=== PATIENT | male | born 1955 | race African-American/Black ===

== ENCOUNTER 2018-01-07 17:43 | Emergency (ER) | payer SELFPAY ==
[~2018-01-07] VITALS: Ht 188 cm; Wt 72.7 kg
[~2018-01-07 17:43] MED LIST: ATIVAN1 MG PO; CYCLOBENZAPRINE10 MG PO; GEODON20 MG PO; LIBRIUM25 MG PO
[2018-01-07 17:56] VITALS: Ht 188 cm; Wt 72.7 kg
[2018-01-07] MEDS ORDERED: BP MEDS (18:12)
[2018-01-07] MEDS ORDERED: SEIZURE MEDICATION (18:13)
[2018-01-07] MEDS ORDERED: CHOLESTEROL MEDS (18:13)
[2018-01-07] MEDS ORDERED: SEASONAL ALLERGY MED (18:13)
[2018-01-07] MEDS ORDERED: VIBRAMYCIN 100100 MG PO (22:37)
[2018-01-07] MEDS ORDERED: TORADOL10 MG PO (22:37)
[2018-01-07 22:50] VITALS: BP 106/72
== END 2018-01-07 22:51 | disposition home or self-care (01) ==
LOC: D.ER 17:43
DX: S01.511A Laceration without foreign body of lip, initial encounter (principal); W18.30XA Fall on same level, unspecified, initial encounter; Y93.89 Activity, other specified; Y92.89 Other specified places as the place of occurrence of the external cause; S70.01XA Contusion of right hip, initial encounter; G40.909 Epilepsy, unspecified, not intractable, without status epilepticus; I10 Essential (primary) hypertension; F17.200 Nicotine dependence, unspecified, uncomplicated

== ENCOUNTER 2018-01-14 08:23 | Emergency (ER) | payer SELFPAY ==
[~2018-01-14] VITALS: Ht 188 cm; Wt 71.8 kg
[~2018-01-14 08:23] MED LIST changes: +BP MEDS; +CHOLESTEROL MEDS; +SEASONAL ALLERGY MED; +SEIZURE MEDICATION; +TORADOL10 MG PO; +VIBRAMYCIN 100100 MG PO
[2018-01-14 08:36] VITALS: BP 103/63; Ht 188 cm; Wt 71.8 kg
== END 2018-01-14 09:31 | disposition home or self-care (01) ==
LOC: D.ER 08:23
DX: S01.511D Laceration without foreign body of lip, subsequent encounter (principal); X58.XXXD Exposure to other specified factors, subsequent encounter; Z48.02 Encounter for removal of sutures; F17.200 Nicotine dependence, unspecified, uncomplicated

== ENCOUNTER 2018-12-31 07:12 | Inpatient (IN) | payer SELFPAY ==
[~2018-12-31] VITALS: Ht 188 cm; Wt 60.9 kg
[2018-12-31 07:57] LABS: BASOPHILS 0.5 % (0-2); EOSINOPHILS 1.1 % (0-7); HEMATOCRIT 35.4 % (42.0-54.0); HEMOGLOBIN 11.9 g/dL (13.5-17.5); IMMATURE GRANULOCYTES 0.4 % (0-5); LYMPHOCYTES 11.7 % (15-50); MCH 27.2 pg (26.0-34.0); MCHC 33.6 g/dL (31.0-37.0); MEAN PLATELET VOLUME 9.3 fL (7.4-10.4); MONOCYTES 9.9 % (2-11); NEUTROPHILS 76.4 % (40-80); RBC 4.37 10x6/uL (4.20-6.10); RDW 15.9 % (11.5-14.5); WBC 13.9 10x3/uL (4.8-10.8)
[2018-12-31 07:59] LABS: PLATELET COUNT 432 10x3/uL (130-400)
[2018-12-31 08:06] LABS: INR 1.49 (0.85-1.17); PROTIME 17.5 SECONDS (11.6-15.0)
[2018-12-31 08:07] LABS: APTT 39.9 SECONDS (22.8-39.4)
[2018-12-31 08:15] VITALS: BP 110/59
[2018-12-31 08:26] LABS: ALBUMIN 2.3 g/dL (3.4-5.0); ALKALINE PHOSPHATASE 183 U/L (46-116); ALT (SGPT) 23 U/L (10-68); BILIRUBIN - TOTAL 0.57 mg/dL (0.2-1.3); CALC OSMOLALITY 259 mosm/kg (275-300); CALCIUM 8.8 mg/dL (8.5-10.1); CARBON DIOXIDE 23.6 mmol/L (21.0-32.0); CKMB 0.3 U/L (0.0-3.6); CREATINE KINASE 96 UL (21-232); CREATININE - SERUM 0.8 mg/dL (0.6-1.3); PRO BNP 629 pg/mL (0-125); PROTEIN - SERUM 8.9 g/dL (6.4-8.2); SODIUM 130 mmol/L (136-145); TROPONIN-I < 0.017 ng/mL (0.000-0.060); UREA NITROGEN 5 mg/dL (7-18); eGFR NON AFRICAN AMERICAN > 90 mL/min (90-120)
[2018-12-31 08:27] LABS: CHLORIDE - SERUM 94 mmol/L (98-107); GLUCOSE 135 mg/dL (74-106)
[2018-12-31 11:16] LABS: THYROID STIMULATING HORMONE 5.46 uIU/mL (0.36-3.74)
--- NOTE | 2018-12-31 11:30 | NUR ---
NEW PATIENT ADMIT FROM ER WITH PNUEMONIA. PATIENT HAS MASK ON AND STATES THAT HE WAS INSTRUCTED TO KEEP ON UNTIL HE WAS TOLD OTHERWISE. PATIENT HAS 22 G TO RAC SL. ROOM AIR. PATIENT IS ALERT ORIENTED X 4. VSS. ;PATIENT DENIES ANY NEEDS OR PAIN. WILL CONTINUE WITH PLAN OF CARE. SR UP X 2 BED IN LOW POSITION AND CALL LIGHT IN REACH. ORIENTED PATIENT TO ROOM, BATHROOM AND CALL LIGHT .
--- NOTE | 2018-12-31 11:33 | MORECARE ---
CASE MANAGEMENT DISCHARGE SUMMARY PATIENT: QUE RUDD UNIT: [id number] ADM DATE: 12/31/18 AGE: 63 : 57 SEX: M ROOM/BED: D.1208 AUTHOR: DAVID ROCHA PHYSICIAN: REFERRING PHYSICIAN: FREDDIE DOWNS MD DATE OF SERVICE: 12/31/18 Discharge Plan Patient Name: QUE RUDD [facility] [facility] 1955 Planned Disposition: Home Anticipated Discharge Date: 01/04/19 Discharge Date: Expected LOS: 4 Initial Reviewer: [email or web address] Initial Review Date: 12/31/2018 Generated: 12/31/18 12:33 pm DCPIA - Discharge Planning Initial Assessment Updated by [email or web address]: Arcelia Monroe on 12/31/18 11:30 am * Is the patient Alert and Oriented? Yes * How many steps to enter\exit or inside your home? None * PCP Dr. Molina in [place] * Pharmacy [facility] in [place] * Preadmission Environment Home Alone * ADLs Independent * Equipment Cane * List name and contact numbers for known caregivers / representatives who currently or will assist patient after discharge: Jesús Rudd - brother - [phone] * Verbal permission to speak to the caregivers and representatives has been obtained from the patient. Yes * Community resources currently utilized None * Additional services required to return to the preadmission environment? No * Can the patient safely return to the preadmission environment? Yes * Has this patient been hospitalized within the prior 30 days at any hospital? No Patient Name: QUE RUDD Page 45466 at 1133 All edits/amendments must be made on the electronic document DICTATION DATE: 12/31/18 1133 DIRECTOR PRODUCT DEVELOPMENT: PHU 12/31/18 1133 RPT#: [id number] DC DATE: STATUS: ADM IN [facility] [address] [place] [address] END OF REPORT
[2018-12-31 11:42] VITALS: BP 88/55; BMI 17.1
--- NOTE | 2018-12-31 11:43 | MORECARE ---
CASE MANAGEMENT DISCHARGE SUMMARY PATIENT: QUE RUDD UNIT: [id number] ADM DATE: 12/31/18 AGE: 63 : 57 SEX: M ROOM/BED: D.1208 AUTHOR: JOSEFINA,DOC PHYSICIAN: REFERRING PHYSICIAN: FREDDIE DOWNS MD DATE OF SERVICE: 12/31/18 Discharge Plan Patient Name: QUE RUDD Facility: [facility]:[place] : 1955 Planned Disposition: Home Anticipated Discharge Date: 01/04/19 Discharge Date: Expected LOS: 4 Initial Reviewer: [email or web address] Initial Review Date: 12/31/2018 Generated: 12/31/18 12:43 pm DCP- Discharge Planning Updated by [email or web address]: Arcelia Monroe on 12/31/18 10:[address] DC PLAN: Return home independently. ANTICIPATED DC NEEDS: Needs a local pharmacy for dc meds. CM met with patient to complete initial dc planning assessment. CM educated patient on the CM role and verbal consent given by patient to complete assessment. CM verified patient's address, phone number, and emergency contact phone numbers. Patient lives at home alone and reports he is independent in his care at home. Patient has [place] Medicaid and his pharmacy is in [place]. He stated his medicaid will not cover medications at dc if he gets them here. He denied returning to [place] for several more weeks. CM explained that he needed to select a local pharmacy to get his dc meds from. If possible will need dc meds off the $4 drug list. At discharge patient plans to return home alone and feels this is a safe discharge. CM discussed availability of home health, rehab services, and medical equipment. Patient denied known discharge needs at this time. Patient reports his brother will transport him home at time of discharge. CM will continue to follow and will assist as needed with dc plans/needs. Arcelia Monroe RN, [facility] DCPIA - Discharge Planning Initial Assessment Updated by [email or web address]: Arcelia Monroe on 12/31/18 11:30 am * Is the patient Alert and Oriented? Yes * How many steps to enter\exit or inside your home? None * PCP Dr. Molina in [place] * Pharmacy [facility] in [place] * Preadmission Environment Home Alone * ADLs Independent * Equipment Cane * List name and contact numbers for known caregivers / representatives who currently or will assist patient after discharge: Jesús Rudd - brother - [phone] * Verbal permission to speak to the caregivers and representatives has been obtained from the patient. Yes * Community resources currently utilized None * Additional services required to return to the preadmission environment? No * Can the patient safely return to the preadmission environment? Yes * Has this patient been hospitalized within the prior 30 days at any hospital? No Last DP export: 12/31/18 10:33 a Patient Name: QUE RUDD Page 85184 at 1143 All edits/amendments must be made on the electronic document DICTATION DATE: 12/31/18 1143 MOVIE CRITIC: PHU 12/31/18 1143 RPT#: [id number] DC DATE: STATUS: ADM IN [facility] [address] [place] [address] END OF REPORT
--- NOTE | 2018-12-31 12:00 | NUR ---
DR CAROLINA IN ROOM. NEW ORDERS RECEIVED. PATIENT TO BE PLACED ON REVERSE ISOLATION FOR POSSIBLE TB. CALL DEAN FOR ROOM. WILL GET BACK TO ME.
--- NOTE | 2018-12-31 12:20 | NUR ---
RECEVIED PHONE CALL FROM DR CAROLINA. PATIENT TO REMAIN NPO AND BE PREPARED FOR BRONCHOSCOPY.
[2018-12-31 12:29] VITALS: BP 92/62
[2018-12-31] MEDS ORDERED: NORVASC10 MG PO (13:59)
[2018-12-31] MEDS ORDERED: FLUTICASONE PRO16 GM NASAL (13:59)
[2018-12-31] MEDS ORDERED: SINGULAIR10 MG PO (14:00)
--- NOTE | 2018-12-31 14:00 | NUR ---
RECIEVED CALL FROM DEAN MARSHALL SUP. NEW ROOM NUMBER WILL BE [id number].
[2018-12-31] MEDS ORDERED: LIPITOR40 MG PO (14:01)
[2018-12-31] MEDS ORDERED: PEPCID40 MG PO (14:01)
[2018-12-31] MEDS ORDERED: SPIRIVA RESPIMAT4 G1 INH (14:02)
[2018-12-31 14:23] LABS: CKMB 0.2 U/L (0.0-3.6); CREATINE KINASE 72 UL (21-232); TROPONIN-I < 0.017 ng/mL (0.000-0.060)
--- NOTE | 2018-12-31 14:26 | NUR ---
PATIENT RESTING QUIETLY WITH EYES CLOSED AND BREATHING EVENLY. PATIENT IS BEING TRANSFERED TO ROOM 2101. ATTEMPTED TO CALL REPORT AND TRANSFER. NURSE TO CALL ME BACK.
[2018-12-31 14:33] LABS: UDS - AMPHET NEGATIVE QUAL (NEGATIVE); UDS - BARB NEGATIVE QUAL (NEGATIVE); UDS - BENZO NEGATIVE QUAL (NEGATIVE); UDS - COCAINE NEGATIVE QUAL (NEGATIVE); UDS - OPIATE NEGATIVE QUAL (NEGATIVE); UDS - PCP NEGATIVE QUAL (NEGATIVE); UDS - THC NEGATIVE QUAL (NEGATIVE)
--- NOTE | 2018-12-31 14:49 | NUR ---
CALLED REPORT TO ZAKI ROCHA. PATIENT IS STABLE AND VSS. PATIENT TRANSFERRED VA AND HOSPTIAL STAFF TO ROOM 2101.
--- NOTE | 2018-12-31 14:50 | NUR ---
SENT MEDICAL RECORD REQUEST TO [facility]. RECORDS TO BE FAXED TO [facility].
--- NOTE | 2018-12-31 15:37 | NUR ---
PATIENT HAS BEEN TRANSFERED FROM [facility]. CALLED AND GOT REPORT FROM NURSE LUKE. PATIENT IS IN NEGATIVE PRESSURE ROOM WITH PNEUMONIA AND POSSIBLE TB. HE IS ABOUT TO GET A BRONCOSCOPY. HE HAS HAD A TB SPOT DONE AND OTHER TESTS. HE WILL GET THE SPUTUM CULTURE NOW DURING THE BRONCH. WILL CONTINUE TO MONITOR THE PATIENT CAREFULLY. HE HAD LOW BLOOD PRESSURE BEFORE TRANSFER.
--- NOTE | 2018-12-31 19:20 | NUR ---
EVENING ROUNDS COMPLETE, PT LAYING IN BED. NO SIGNS OF DISTRESS. AAOX4. CL IN REACH, BED IN LOWEST POSTION.
[2018-12-31 20:00] VITALS: BP 100/57
[2018-12-31 21:10] LABS: CKMB 0.1 U/L (0.0-3.6); CREATINE KINASE 57 UL (21-232); TROPONIN-I < 0.017 ng/mL (0.000-0.060)
[2019-01-01] VITALS: BP 112/63
[2019-01-01 02:35] LABS: BASOPHILS 0.3 % (0-2); EOSINOPHILS 0.1 % (0-7); HEMATOCRIT 29.6 % (42.0-54.0); HEMOGLOBIN 10.1 g/dL (13.5-17.5); IMMATURE GRANULOCYTES 0.7 % (0-5); LYMPHOCYTES 12.3 % (15-50); MCH 27.6 pg (26.0-34.0); MCHC 34.1 g/dL (31.0-37.0); MCV 80.9 fL (80.0-100.0); MEAN PLATELET VOLUME 9.3 fL (7.4-10.4); MONOCYTES 15.9 % (2-11); NEUTROPHILS 70.7 % (40-80); PLATELET COUNT 366 10x3/uL (130-400); RBC 3.66 10x6/uL (4.20-6.10); RDW 16.1 % (11.5-14.5); WBC 16.5 10x3/uL (4.8-10.8)
[2019-01-01 03:14] LABS: ALBUMIN 1.9 g/dL (3.4-5.0); ALKALINE PHOSPHATASE 152 U/L (46-116); BILIRUBIN - TOTAL 0.58 mg/dL (0.2-1.3); CALC OSMOLALITY 259 mosm/kg (275-300); CALCIUM 7.6 mg/dL (8.5-10.1); CARBON DIOXIDE 22.9 mmol/L (21.0-32.0); CHLORIDE - SERUM 97 mmol/L (98-107); CKMB 0.2 U/L (0.0-3.6); CREATINE KINASE 49 UL (21-232); CREATININE - SERUM 0.7 mg/dL (0.6-1.3); GLUCOSE 107 mg/dL (74-106); MAGNESIUM - SERUM 1.4 mg/dL (1.8-2.4); PROTEIN - SERUM 7.3 g/dL (6.4-8.2); SODIUM 131 mmol/L (136-145); UREA NITROGEN 5 mg/dL (7-18); eGFR NON AFRICAN AMERICAN > 90 mL/min (90-120)
[2019-01-01 03:15] LABS: ALT (SGPT) 17 U/L (10-68); POTASSIUM - SERUM 2.9 mmol/L (3.5-5.1); TROPONIN-I < 0.017 ng/mL (0.000-0.060)
[2019-01-01 04:00] VITALS: BP 101/65
[2019-01-01 08:32] VITALS: BP 115/79
--- NOTE | 2019-01-01 09:39 | NUR ---
PATIENT IS ALERT AND ORIENTED. HE REPORTED NAUSEA AND TREATED WITH MEDICINE ORDERED.
[2019-01-01] MEDS ORDERED: SINGULAIR10 MG PO (11:20)
[2019-01-01] MEDS ORDERED: NORVASC10 MG PO (11:21)
[2019-01-01] MEDS ORDERED: ADVIL100 M1 PO (11:23)
[2019-01-01] MEDS ORDERED: MULTI-DAY VITAM1 TAB PO (11:24)
[2019-01-01 13:16] VITALS: Ht 188 cm; Wt 60.9 kg
[2019-01-01 14:09] LABS: FUNGUS STAIN Final report (())
[2019-01-01 14:52] VITALS: BP 121/79
[2019-01-01 17:08] LABS: AFB SPECIMEN PROCESSING Concentration (())
--- NOTE | 2019-01-01 17:12 | NUR ---
PATIENT IS RESTING AT THIS TIME. DR CARLOINA IS AT BEDSIDE. PATIENT HAS NOT COMPLAINED OF PAIN.
--- NOTE | 2019-01-01 19:04 | NUR ---
PATIENT BROTHER BROUGHT HIS MEDICATIONS FROM HOME, AND THEY HAVE BEEN BROUGHT TO PHARMACY AND LOCKED UP THERE. THE PAPERS ARE IN HIS CHART.
--- NOTE | 2019-01-01 19:30 | NUR ---
PT CARE ASSUMED. BEDSIDE SHIFT REPORT COMPLETE. PT CONTINUES ON AIRBORNE PRECAUTIONS. RR EVEN AND UNLABORED ON RA. NO S/S OF DISTRESS NOTED AT THIS TIME. NO VOICED C/O OR CONCERNS AT THIS TIME. CALL LIGHT IN REACH. WILL CTM.
[2019-01-01 20:00] VITALS: BP 85/50
[2019-01-02] VITALS: BP 105/68
[2019-01-02 04:00] VITALS: BP 100/65
[2019-01-02 05:07] LABS: BASOPHILS 0.6 % (0-2); EOSINOPHILS 0.6 % (0-7); HEMATOCRIT 30.6 % (42.0-54.0); HEMOGLOBIN 10.2 g/dL (13.5-17.5); IMMATURE GRANULOCYTES 0.3 % (0-5); MCH 27.3 pg (26.0-34.0); MCHC 33.3 g/dL (31.0-37.0); MEAN PLATELET VOLUME 9.7 fL (7.4-10.4); MONOCYTES 16.2 % (2-11); NEUTROPHILS 71.3 % (40-80); PLATELET COUNT 362 10x3/uL (130-400); RBC 3.73 10x6/uL (4.20-6.10); RDW 16.6 % (11.5-14.5); WBC 13.1 10x3/uL (4.8-10.8)
[2019-01-02 05:27] LABS: ALBUMIN 1.7 g/dL (3.4-5.0); ALKALINE PHOSPHATASE 130 U/L (46-116); ALT (SGPT) 13 U/L (10-68); CALC OSMOLALITY 258 mosm/kg (275-300); CALCIUM 8.1 mg/dL (8.5-10.1); CHLORIDE - SERUM 97 mmol/L (98-107); CREATININE - SERUM 0.7 mg/dL (0.6-1.3); GLUCOSE 119 mg/dL (74-106); MAGNESIUM - SERUM 1.5 mg/dL (1.8-2.4); POTASSIUM - SERUM 3.7 mmol/L (3.5-5.1); PROTEIN - SERUM 6.9 g/dL (6.4-8.2); SODIUM 130 mmol/L (136-145); UREA NITROGEN 5 mg/dL (7-18); eGFR NON AFRICAN AMERICAN > 90 mL/min (90-120)
[2019-01-02 10:35] VITALS: BP 84/59
--- NOTE | 2019-01-02 10:43 | NUR ---
I have reviewed this patient and I concur with the Shift Assessment completed by the Licensed Practical Nurse today this shift.
[2019-01-02 12:50] VITALS: BP 141/78
--- NOTE | 2019-01-02 19:42 | NUR ---
PT CARE ASSUMED. BEDSIDE SHIFT REPORT COMPLETE. PT A&O, RR EVEN AND UNLABORED ON RA. NO S/S OF DISTRESS NOTED. LINEN CHANGE PROVIDED. NO VOICED C/O OR CONCERNS AT THIS TIME. CALL LIGHT IN REACH. WILL CTM.
[2019-01-02 20:00] VITALS: BP 99/68
[2019-01-03 00:30] VITALS: BP 102/66
[2019-01-03 04:00] VITALS: BP 92/57
[2019-01-03 05:50] LABS: BASOPHILS 0.7 % (0-2); EOSINOPHILS 0.8 % (0-7); HEMATOCRIT 31.2 % (42.0-54.0); HEMOGLOBIN 10.5 g/dL (13.5-17.5); IMMATURE GRANULOCYTES 0.3 % (0-5); LYMPHOCYTES 15.2 % (15-50); MCH 27.3 pg (26.0-34.0); MCHC 33.7 g/dL (31.0-37.0); MCV 81.3 fL (80.0-100.0); MEAN PLATELET VOLUME 9.3 fL (7.4-10.4); MONOCYTES 18.8 % (2-11); NEUTROPHILS 64.2 % (40-80); PLATELET COUNT 323 10x3/uL (130-400); RBC 3.84 10x6/uL (4.20-6.10); RDW 16.3 % (11.5-14.5)
[2019-01-03 06:12] LABS: ALBUMIN 1.7 g/dL (3.4-5.0); ALKALINE PHOSPHATASE 131 U/L (46-116); ALT (SGPT) 19 U/L (10-68); CALC OSMOLALITY 256 mosm/kg (275-300); CALCIUM 7.7 mg/dL (8.5-10.1); CARBON DIOXIDE 22.3 mmol/L (21.0-32.0); CHLORIDE - SERUM 99 mmol/L (98-107); CREATININE - SERUM 0.8 mg/dL (0.6-1.3); GLUCOSE 103 mg/dL (74-106); MAGNESIUM - SERUM 1.6 mg/dL (1.8-2.4); POTASSIUM - SERUM 3.9 mmol/L (3.5-5.1); PROTEIN - SERUM 6.9 g/dL (6.4-8.2); SODIUM 129 mmol/L (136-145); UREA NITROGEN 6 mg/dL (7-18); eGFR NON AFRICAN AMERICAN > 90 mL/min (90-120)
--- NOTE | 2019-01-03 07:30 | NUR ---
A/A/OX4. RESTING QUIETLY IN BED WATCHING TV. DENIES ANY PAIN AT PRESENT TIME AND NO REQUESTS VOICED. SL PATENT TO RIGHT AC WITHOUT REDNESS OR EDEMA. ASSESSMENT COMPLETED AND WILL CONTINUE POC.
[2019-01-03 07:51] VITALS: BP 80/47
[2019-01-03 12:11] VITALS: BP 87/52
[2019-01-03 15:39] VITALS: BP 85/51
--- NOTE | 2019-01-03 19:33 | NUR ---
PT CARE ASSUMED. PT RESTING IN BED RR EVEN AND UNLABORED ON RA. NO S/S OF DISTRESS NOTED AT THIS TIME. DENIES NEEDS AT THIS TIME. CALL LIGHT IN REACH. WILL CTM.
[2019-01-03 20:00] VITALS: BP 98/63
[2019-01-04] VITALS: BP 93/62
[2019-01-04 04:28] LABS: BASOPHILS 0.6 % (0-2); IMMATURE GRANULOCYTES 0.5 % (0-5); MCH 27.1 pg (26.0-34.0); MCHC 33.3 g/dL (31.0-37.0); MCV 81.3 fL (80.0-100.0); MEAN PLATELET VOLUME 9.2 fL (7.4-10.4); MONOCYTES 18.2 % (2-11); NEUTROPHILS 64.7 % (40-80); PLATELET COUNT 309 10x3/uL (130-400); RBC 3.69 10x6/uL (4.20-6.10); RDW 16.4 % (11.5-14.5); WBC 11.1 10x3/uL (4.8-10.8)
[2019-01-04 04:47] LABS: ALBUMIN 1.6 g/dL (3.4-5.0); ALKALINE PHOSPHATASE 122 U/L (46-116); ALT (SGPT) 28 U/L (10-68); BILIRUBIN - TOTAL 0.45 mg/dL (0.2-1.3); CALC OSMOLALITY 259 mosm/kg (275-300); CALCIUM 7.9 mg/dL (8.5-10.1); CARBON DIOXIDE 24.2 mmol/L (21.0-32.0); CHLORIDE - SERUM 97 mmol/L (98-107); CREATININE - SERUM 0.9 mg/dL (0.6-1.3); GLUCOSE 126 mg/dL (74-106); MAGNESIUM - SERUM 1.4 mg/dL (1.8-2.4); POTASSIUM - SERUM 3.9 mmol/L (3.5-5.1); PROTEIN - SERUM 6.6 g/dL (6.4-8.2); SODIUM 130 mmol/L (136-145); UREA NITROGEN 5 mg/dL (7-18); eGFR NON AFRICAN AMERICAN > 90 mL/min (90-120)
--- NOTE | 2019-01-04 07:15 | NUR ---
PT RESTING IN BED, SHIFT ASSESSMENT PERFORMED. DENIES ANY NEEDS AT THIS TIME, WILL CONT TO FOLLOW POC
[2019-01-04 09:23] VITALS: BP 86/54
[2019-01-04 11:06] VITALS: BP 101/69
--- NOTE | 2019-01-04 12:30 | NUR ---
SITTING IN BED EATING LUNCH, DENIES ANY NEEDS AT THIS TIME, WILL CONT TO FOLLOW POC
--- NOTE | 2019-01-04 12:55 | NUR ---
Nutrition Follow-up: Diet: Cardiac, Ensure with meals PO intake: 71% avg x 9 meals Wt: 136# Last BM: 01/03 per chart Labs noted: Na 130, Glu 126, Mg 1.4, Ca 7.9, Alb 1.6 Meds noted: MagOx Continue current diet/supplement as tolerated. RD following.
--- NOTE | 2019-01-04 14:30 | NUR ---
SPOKE WITH WILFRIDO RG DUE TO PT'S MS FALLING OFF MAY. NEW ORDER RECIEVED TO RESTART MS
--- NOTE | 2019-01-04 14:47 | NUR ---
PIV TO RIGHT AC INFILTRATED. PIV REMOVED WITH CATHETER TIP INTACT. 20G PIV INSERTED X1 ATTEMPT TO RIGHT FA. PT TOLERATED WELL. WILL CONT TO FOLLOW POC
[2019-01-04 16:08] VITALS: BP 86/56
[2019-01-04 20:00] VITALS: BP 102/62
[2019-01-05 00:30] VITALS: BP 101/66
[2019-01-05 04:30] VITALS: BP 164/92
[2019-01-05 06:24] LABS: BASOPHILS 0.2 % (0-2); EOSINOPHILS 0.1 % (0-7); HEMATOCRIT 31.9 % (42.0-54.0); HEMOGLOBIN 10.7 g/dL (13.5-17.5); IMMATURE GRANULOCYTES 0.6 % (0-5); LYMPHOCYTES 6.2 % (15-50); MCH 27.4 pg (26.0-34.0); MCHC 33.5 g/dL (31.0-37.0); MCV 81.6 fL (80.0-100.0); MEAN PLATELET VOLUME 9.3 fL (7.4-10.4); MONOCYTES 17.4 % (2-11); NEUTROPHILS 75.5 % (40-80); PLATELET COUNT 302 10x3/uL (130-400); RBC 3.91 10x6/uL (4.20-6.10); RDW 16.6 % (11.5-14.5)
[2019-01-05 06:40] LABS: WBC 18.2 10x3/uL (4.8-10.8)
[2019-01-05 06:53] LABS: ALBUMIN 1.9 g/dL (3.4-5.0); ALKALINE PHOSPHATASE 151 U/L (46-116); BILIRUBIN - TOTAL 1.06 mg/dL (0.2-1.3); CALCIUM 7.7 mg/dL (8.5-10.1); CARBON DIOXIDE 23.5 mmol/L (21.0-32.0); CHLORIDE - SERUM 97 mmol/L (98-107); CREATININE - SERUM 0.7 mg/dL (0.6-1.3); GLUCOSE 124 mg/dL (74-106); MAGNESIUM - SERUM 1.7 mg/dL (1.8-2.4); POTASSIUM - SERUM 3.5 mmol/L (3.5-5.1); PROTEIN - SERUM 7.4 g/dL (6.4-8.2); SODIUM 130 mmol/L (136-145); eGFR NON AFRICAN AMERICAN > 90 mL/min (90-120)
[2019-01-05 06:54] LABS: ALT (SGPT) 37 U/L (10-68); CALC OSMOLALITY 259 mosm/kg (275-300); UREA NITROGEN 7 mg/dL (7-18)
--- NOTE | 2019-01-05 08:06 | NUR ---
PT LAYING IN BED. RR EVEN AND UNLABORED. AIRBORNE PRECAUTIONS IN PLACE. ASSESSMENT COMPLETE. DENIES NEEDS OR PAIN AT THIS TIME. AXO. WILL CONTINUE TO MONITOR.
[2019-01-05 10:52] VITALS: BP 97/56
--- NOTE | 2019-01-05 11:56 | NUR ---
I have reviewed this patient and I concur with the Shift Assessment completed by the Licensed Practical Nurse today this shift.
[2019-01-05 15:10] LABS: AFB SPECIMEN PROCESSING Concentration (())
[2019-01-05 16:10] VITALS: BP 98/55
--- NOTE | 2019-01-05 19:00 | NUR ---
EVENING ROUNDS COMPLETE. PT LAYING IN BED. AAOX4, NO SIGNS OF DISTRESS. PT DENIES ANY NEEDS AT THIS TIME. CL IN REACH, BED IN LOWEST POSITION.
[2019-01-05 20:00] VITALS: BP 116/68
[2019-01-06] VITALS: BP 104/62
[2019-01-06 04:00] VITALS: BP 100/62
[2019-01-06 07:08] LABS: BASOPHILS 0.4 % (0-2); EOSINOPHILS 0.4 % (0-7); HEMATOCRIT 30.7 % (42.0-54.0); HEMOGLOBIN 10.1 g/dL (13.5-17.5); IMMATURE GRANULOCYTES 0.5 % (0-5); LYMPHOCYTES 9.5 % (15-50); MCH 26.8 pg (26.0-34.0); MCHC 32.9 g/dL (31.0-37.0); MCV 81.4 fL (80.0-100.0); MEAN PLATELET VOLUME 9.5 fL (7.4-10.4); MONOCYTES 17.2 % (2-11); PLATELET COUNT 353 10x3/uL (130-400); RBC 3.77 10x6/uL (4.20-6.10); RDW 16.4 % (11.5-14.5)
[2019-01-06 07:39] LABS: WBC 11.2 10x3/uL (4.8-10.8)
[2019-01-06 07:48] LABS: ALBUMIN 1.7 g/dL (3.4-5.0); ALKALINE PHOSPHATASE 126 U/L (46-116); AMYLASE - SERUM 45 U/L (25-115); BILIRUBIN - TOTAL 0.92 mg/dL (0.2-1.3); CALCIUM 7.7 mg/dL (8.5-10.1); CARBON DIOXIDE 23.3 mmol/L (21.0-32.0); CHLORIDE - SERUM 98 mmol/L (98-107); CREATININE - SERUM 0.8 mg/dL (0.6-1.3); GLUCOSE 103 mg/dL (74-106); LIPASE 186 U/L (73-393); POTASSIUM - SERUM 3.7 mmol/L (3.5-5.1); PROTEIN - SERUM 6.8 g/dL (6.4-8.2); SODIUM 132 mmol/L (136-145); eGFR NON AFRICAN AMERICAN > 90 mL/min (90-120)
[2019-01-06 07:52] LABS: ALT (SGPT) 26 U/L (10-68); CALC OSMOLALITY 261 mosm/kg (275-300); UREA NITROGEN 4 mg/dL (7-18)
[2019-01-06 08:11] LABS: HEPATITIS C ANTIBODY 0.4 S/CO RAT (0.0-0.9)
[2019-01-06 12:09] LABS: ANA REFLEX - DIRECT Negative (Negative)
[2019-01-06 13:16] VITALS: BP 81/51
--- NOTE | 2019-01-06 14:12 | NUR ---
I have reviewed this patient and I concur with the Shift Assessment completed by the Licensed Practical Nurse today this shift.
[2019-01-06 18:11] VITALS: BP 94/55
--- NOTE | 2019-01-06 19:05 | NUR ---
EVENING ROUNDS COMPLETE. PT LAYING IN BED. NO SIGNS OF DISTRESS. PT DENIES ANY NEEDS AT THIS TIME. AAOX4. CL IN REACH, BED IN LOWEST POSITION.
[2019-01-06 20:00] VITALS: BP 104/64
[2019-01-07] VITALS: BP 99/58
[2019-01-07 04:00] VITALS: BP 101/59
[2019-01-07 05:45] LABS: BASOPHILS 0.6 % (0-2); EOSINOPHILS 0.6 % (0-7); HEMATOCRIT 31.2 % (42.0-54.0); HEMOGLOBIN 10.2 g/dL (13.5-17.5); IMMATURE GRANULOCYTES 0.9 % (0-5); LYMPHOCYTES 12.3 % (15-50); MCH 26.8 pg (26.0-34.0); MCHC 32.7 g/dL (31.0-37.0); MCV 81.9 fL (80.0-100.0); MEAN PLATELET VOLUME 9.4 fL (7.4-10.4); MONOCYTES 15.7 % (2-11); NEUTROPHILS 69.9 % (40-80); PLATELET COUNT 375 10x3/uL (130-400); RBC 3.81 10x6/uL (4.20-6.10); RDW 16.6 % (11.5-14.5)
[2019-01-07 05:46] LABS: WBC 17.3 10x3/uL (4.8-10.8)
[2019-01-07 06:08] LABS: ALBUMIN 1.8 g/dL (3.4-5.0); ALKALINE PHOSPHATASE 121 U/L (46-116); ALT (SGPT) 21 U/L (10-68); CALC OSMOLALITY 255 mosm/kg (275-300); CALCIUM 7.6 mg/dL (8.5-10.1); CARBON DIOXIDE 20.8 mmol/L (21.0-32.0); CHLORIDE - SERUM 97 mmol/L (98-107); CREATININE - SERUM 0.7 mg/dL (0.6-1.3); GLUCOSE 92 mg/dL (74-106); POTASSIUM - SERUM 3.8 mmol/L (3.5-5.1); PROTEIN - SERUM 6.5 g/dL (6.4-8.2); SODIUM 129 mmol/L (136-145); UREA NITROGEN 5 mg/dL (7-18); eGFR NON AFRICAN AMERICAN > 90 mL/min (90-120)
--- NOTE | 2019-01-07 07:05 | NUR ---
REPORT RECEIVED. RESTING WITH EASE RESP EVEN WITHOUT LABOR. REMAINS IN AIRBORNE ISOLATION. BED IN LOWEST POSTION AND LOCKED. CAREPLAN REVIEW DONE WITH SAFETY PRECAUTIONS IN PLACE. CL IN REACH
[2019-01-07 10:36] VITALS: BP 81/63
--- NOTE | 2019-01-07 13:30 | NUR ---
HOMERO FROM INFECTION CONTROL COME AND CHECKED HIS TB SKIN TEST WITH RESULTS OF 25MM. SHE SPOKE WITH DR VELARDE AND REPORTED THESE RESULTS
[2019-01-07 13:50] VITALS: BP 89/62
[2019-01-07 14:09] LABS: FUNGUS CULTURE RESULT 1 Candida albicans (())
--- NOTE | 2019-01-07 15:02 | NUR ---
Nutrition follow-up: Diet: low sodium Pt c/o cold food and not enough variety due to being in isolation Visited with pt re: food selections RDN reviewed menus selections with pt. Pt states we need to change all our menus. RDN reviewed menu selections with pt who did not know he could order cheeseburger, tuna salad, turkey sandwich, teacher of the sight impaired salad. I asked pt what he usually ate at home and he told me I was dismissed. I stayed long enough to help with menu selections for dinner tonight and breakfast in the morning. SIOMARA asked kitchen staff to notify the COTTAGE SUPERVISOR as soon as the trays arrive on the floor so his tray could be taken in immediately. SIOMARA will check with pt tomorrow. Following.
--- NOTE | 2019-01-07 15:56 | NUR ---
I notified [facility] and [facility] of positive AFB and physicians concern for patient with TB. I faxed H&P/lab results/CT chest and XRays to Mya Cortes at [facility]. Notified Mya of positive TBST of 25mm. Maggi will talk with Dr. Aj at [facility] regarding further instruction.
--- NOTE | 2019-01-07 17:15 | NUR ---
HE REFUSED TO SIT UP IN HIS CHAIR FOR SUPPER. HE SAID HE WILL GET UP TOMORROW BUT NOT TODAY
[2019-01-07 17:40] VITALS: BP 202/82
--- NOTE | 2019-01-07 18:18 | NUR ---
NO C/O VOICED AT THIS TIME DENIES ANY CURRENT NEEDS
--- NOTE | 2019-01-07 18:23 | NUR ---
BLOOD PRESSURE IS 110/60 ON RECHECK
--- NOTE | 2019-01-07 19:15 | NUR ---
AROUSES EASILY WITH VOICE ALERT AND O X4 AIRBORNE ISOLATION ONEIL BE OBSERVED ROOM IS APROPRIATELY SET UP LCTA AT THIS TIME SKIN WARM AND DRY BED LOW AND LOCKED AND PT HAS CALL LIGHT DENIES OTHER NEEDS AT THIS TIME
[2019-01-07 20:00] VITALS: BP 98/61
--- NOTE | 2019-01-08 00:11 | NUR ---
FAILED TO ACKNOWLEDGE AIRBORNE ISOLATION IN THE ASSESSMENT DUE TO TB
[2019-01-08 04:30] VITALS: BP 114/58
[2019-01-08 05:40] LABS: BASOPHILS 0.8 % (0-2); EOSINOPHILS 1.2 % (0-7); HEMOGLOBIN 10.1 g/dL (13.5-17.5); IMMATURE GRANULOCYTES 0.4 % (0-5); LYMPHOCYTES 11.9 % (15-50); MCH 27.1 pg (26.0-34.0); MCHC 33.7 g/dL (31.0-37.0); MCV 80.4 fL (80.0-100.0); MEAN PLATELET VOLUME 9.1 fL (7.4-10.4); MONOCYTES 13.4 % (2-11); NEUTROPHILS 72.3 % (40-80); PLATELET COUNT 422 10x3/uL (130-400); RBC 3.73 10x6/uL (4.20-6.10); RDW 16.4 % (11.5-14.5); WBC 14.2 10x3/uL (4.8-10.8)
[2019-01-08 06:22] LABS: ALBUMIN 1.7 g/dL (3.4-5.0); ALKALINE PHOSPHATASE 113 U/L (46-116); ALT (SGPT) 16 U/L (10-68); BILIRUBIN - TOTAL 0.67 mg/dL (0.2-1.3); CALC OSMOLALITY 262 mosm/kg (275-300); CALCIUM 7.8 mg/dL (8.5-10.1); CARBON DIOXIDE 23.7 mmol/L (21.0-32.0); CHLORIDE - SERUM 98 mmol/L (98-107); CREATININE - SERUM 0.7 mg/dL (0.6-1.3); GLUCOSE 106 mg/dL (74-106); POTASSIUM - SERUM 3.3 mmol/L (3.5-5.1); SODIUM 132 mmol/L (136-145); eGFR NON AFRICAN AMERICAN > 90 mL/min (90-120)
[2019-01-08 06:27] LABS: UREA NITROGEN 7 mg/dL (7-18)
--- NOTE | 2019-01-08 06:50 | NUR ---
REPORT RECEIVED. REMAINS IN AIRBORNE ISOLATION FOR ACTIVE TB. WATCHING TV. HE IS ALERT AND ABLE TO VOICE NEEDS. RESP EVEN WITHOUT LABOR NO COUGH. BED IN LOWEST POSITION AND LOCKED. CAREPLAN REVIEW DONE AND SAFETY PRECAUTIONS IN PLACE. CL IN REACH
[2019-01-08 09:39] VITALS: BP 92/62
--- NOTE | 2019-01-08 12:55 | NUR ---
HE IS UPSET AND STATES HE IS LEAVING HERE AT 2PM. I DID SPEAK WITH INFECTION CONTROL NURSE WHO IS TRYING TO GET PLAN IN PLACE WITH [facility] FOR FURTHER TB TX AND SHE IS AWAITING FOR A RETURN CALL.
--- NOTE | 2019-01-08 12:58 | NUR ---
DR VELARDE NOTIFIED OF HIS PLAN TO LEAVE AT 2 TODAY, HE STATED TO CALL THE HEALTH DEPARTMENT BACK TO SEE WHAT THEY SUGGEST DUE TO NEED TO HAVE MEDS IN PLACE AND QUARTINE AT HOME DUE TO ACTIVE TB CASE. INFECTION CONTROL NURSE IS CALLING THEM BACK RIGHT NOW
[2019-01-08 13:31] VITALS: BP 92/61
--- NOTE | 2019-01-08 13:39 | NUR ---
Spoke with [facility] Danae/Mya regarding obtaining TB meds for patient. Dr Aj in process of reviewing record. Wants sputum specimen if possible for MTB. If patient leaves [place] he is to call [facility] on Friday01/11/2019 and speak with Hernandez Chris for appointment [phone] and get TB meds. If specimen obtained call Hernandez ANG to pick-up. If after hours hold in lab till Friday. If patient returns to [place] he is to call Mya at [facility] [phone] and she will send records. If patient unable to reach [facility] may call her. Patient will need to wear a mask if in public.
--- NOTE | 2019-01-08 13:48 | NUR ---
I TOOK SPUTUM CUP IN AND ASKED HIM IF HE COULD PROVIDE A SPECIMEN FOR THE HEALTH DEPT. AND HE SAID NOT RIGHT NOW AND I MAY OR MAYNOT. HE IS AGGRESSIVE IN NATURE STATING I AM UPSET. I ASK HIM TO CALL WHEN HE HAD THE SPECIMEN AND HE DENIED ANY NEEDS EXCEPT TO GO HOME. HOMERO GAVE ME SOME NUMBERS FOR HIM TO CALL IF HE DOES GO AMA AND SHE HAS BEEN IN CONTACT WITH THE HEALTH DEPT. AND IS GOING TO CALL AND UPDATE DR VELARDE
[2019-01-08 14:09] LABS: MITOCHONDRIAL ANTIBODY <20.0 Units (0.0-20.0); SMOOTH MUSCLE ABS (ACTIN) 57 Units (0-19)
--- NOTE | 2019-01-08 15:53 | NUR ---
DR VELARDE SPOKE WITH HIM AND IT IS OK TO D/C LONG HE GETS TB MEDS FOR THIS WEEKEND. PHARMACY HAS BROUGHT THEM UP. I CALLED DR HAINES AND HE AGREES TO D/C SINCE HE WILL BE PROVIDED TB MEDS.
[2019-01-08] MEDS ORDERED: MYAMBUTOL400 MG PO (15:58)
[2019-01-08] MEDS ORDERED: RIFADIN300 MG PO (15:59)
[2019-01-08] MEDS ORDERED: DIFLUCAN100 MG PO (15:59)
[2019-01-08] MEDS ORDERED: PYRAZINAMIDE500 MG PO (15:59)
[2019-01-08] MEDS ORDERED: ISONIAZID PO (15:59)
--- NOTE | 2019-01-08 16:06 | NUR ---
Spoke with Hernandez Chris at [facility] that patient is being discharged. He is suppose to call and come by to get meds Friday. Patient instructed on mask and mask given. I gave Hernandez Chris patients cell phone number [phone]. Hernandez will call patient Friday morning.
--- NOTE | 2019-01-08 16:15 | NUR ---
NO FLU SHOT GIVEN PATIENT WAS ADMITTED WITH PNEUMONIA AND IS BEING TREATED FOR ACTIVE TB.
--- NOTE | 2019-01-08 17:15 | NUR ---
DISCHARGE INSTRUCTIONS EXPLAINED TO HIM IN DETAIL INCLUDING TO CALL THE HEALTH DEPARTMENT ON FRIDAY, TO WEAR A MASK ANYTIME HE IS IN THE PUBLIC AND THE REASON FOR THIS. HE WAS PROVIDED HIS MEDICATIONS FOR HIS TB BY THE PHARMACY AND THESE WERE GIVEN TO HIM AND HE IS AWARE WHEN TO TAKE THEM. HE WAS PROVIDED ONE WHOLE BOX OF MASK FOR HIS USE. HE WAS GIVEN A SPUTUM SPECIMEN CONTAINER AND WILL TAKE IT TO THE HEALTH DEPARTMENT IF HE COLLECTS ONE. SALINE LOCK WAS D/C WITH CATH TIP INTACT WITH NO BLEEDING. HE IS CALLING [facility] HOME NOW.
[2019-01-08 17:27] VITALS: BP 92/60
--- NOTE | 2019-01-08 17:35 | NUR ---
TRANSFERRED VIA W/C WITH MASK ON DOWN TO FRONT TO HIS CAB. NO CHANGE IN CONDITION NOTED.
--- NOTE | 2019-01-09 12:51 | MORECARE ---
CASE MANAGEMENT DISCHARGE SUMMARY PATIENT: QUE RUDD UNIT: [id number] ADM DATE: 12/31/18 AGE: 63 : 57 SEX: M ROOM/BED: D.2101 AUTHOR: JOSEFINA,DOC PHYSICIAN: REFERRING PHYSICIAN: FREDDIE DOWNS MD DATE OF SERVICE: 01/09/19 Discharge Plan Patient Name: QUE RUDD Facility: [facility]:[place] : 1955 Planned Disposition: Home Anticipated Discharge Date: 01/04/19 Discharge Date: 01/08/2019 Expected LOS: 4 Initial Reviewer: [email or web address] Initial Review Date: 12/31/2018 Generated: 01/09/19 1:50 pm DCP- Discharge Planning Updated by [email or web address]: Arcelia Monroe on 12/31/18 10:[address] DC PLAN: Return home independently. ANTICIPATED DC NEEDS: Needs a local pharmacy for dc meds. CM met with patient to complete initial dc planning assessment. CM educated patient on the CM role and verbal consent given by patient to complete assessment. CM verified patient's address, phone number, and emergency contact phone numbers. Patient lives at home alone and reports he is independent in his care at home. Patient has [place] Medicaid and his pharmacy is in [place]. He stated his medicaid will not cover medications at dc if he gets them here. He denied returning to [place] for several more weeks. CM explained that he needed to select a local pharmacy to get his dc meds from. If possible will need dc meds off the $4 drug list. At discharge patient plans to return home alone and feels this is a safe discharge. CM discussed availability of home health, rehab services, and medical equipment. Patient denied known discharge needs at this time. Patient reports his brother will transport him home at time of discharge. CM will continue to follow and will assist as needed with dc plans/needs. Arcelia Monroe RN, [facility] DCPIA - Discharge Planning Initial Assessment Updated by [id number]: Arcelia Monroe on 12/31/18 11:30 am * Is the patient Alert and Oriented? Yes * How many steps to enter\exit or inside your home? None * PCP Dr. Molina in [place] * Pharmacy [facility] in [place] * Preadmission Environment Home Alone * ADLs Independent * Equipment Cane * List name and contact numbers for known caregivers / representatives who currently or will assist patient after discharge: Jesús Rudd - brother - [phone] * Verbal permission to speak to the caregivers and representatives has been obtained from the patient. Yes * Community resources currently utilized None * Additional services required to return to the preadmission environment? No * Can the patient safely return to the preadmission environment? Yes * Has this patient been hospitalized within the prior 30 days at any hospital? No Last DP export: 12/31/18 10:43 a Patient Name: QUE RUDD Page [id number] at 1251 All edits/amendments must be made on the electronic document DICTATION DATE: 01/09/191249 QUALITY CONTROL OPERATOR: PHU 01/09/191249 RPT#: [id number] DC DATE:01/08/19 STATUS: DIS IN [facility] [address] [place] [address] END OF REPORT
[2019-01-12 16:08] LABS: ACID FAST SMEAR Positive (())
[2019-01-12 20:07] LABS: ACID FAST CULTURE Positive (()); M TUBERCULOSIS Positive (())
[2019-01-19 15:09] LABS: ACID FAST SMEAR Positive (())
[2019-01-20 09:10] LABS: ACID FAST CULTURE Positive (()); M TUBERCULOSIS Positive (())
[2019-01-28 16:08] LABS: FUNGUS MYCOLOGY CULTURE Final report (())
== END 2019-01-08 17:15 | disposition home or self-care (01) | DRG 177 ==
LOC: D.ER 07:12 → D.M2 10:29 → D.M3 10:29 → D.M2 14:56
PROVIDERS: Emergency Medicine; Internal Medicine Gastroenterology; Internal Medicine Nephrology; Internal Medicine Pulmonary Disease; ADMIT Family Medicine; ATTEND Family Medicine
PROC: 0B9G8ZX Drainage of Left Upper Lung Lobe, Via Natural or Artificial Opening Endoscopic, Diagnostic (ICD-10-PCS; principal; 2018-12-31 16:34)
DX: A15.0 Tuberculosis of lung (principal); B37.1 Pulmonary candidiasis; E87.1 Hypo-osmolality and hyponatremia; F17.213 Nicotine dependence, cigarettes, with withdrawal; B37.49 Other urogenital candidiasis; R00.0 Tachycardia, unspecified; J14 Pneumonia due to Hemophilus influenzae; E78.5 Hyperlipidemia, unspecified; D64.9 Anemia, unspecified; E87.6 Hypokalemia

== ENCOUNTER 2019-02-04 06:38 | Emergency (ER) | payer SELFPAY ==
[~2019-02-04] VITALS: Ht 188 cm; Wt 58.6 kg
[~2019-02-04 06:38] MED LIST changes: +ADVIL100 M1 PO; +DIFLUCAN100 MG PO; +FLUTICASONE PRO16 GM NASAL; +ISONIAZID PO; +LIPITOR40 MG PO; +MULTI-DAY VITAM1 TAB PO; +MYAMBUTOL400 MG PO; +NORVASC10 MG PO; +PEPCID40 MG PO; +PYRAZINAMIDE500 MG PO; +RIFADIN300 MG PO; +SINGULAIR10 MG PO; +SPIRIVA RESPIMAT4 G1 INH
[2019-02-04 06:44] VITALS: Ht 188 cm; Wt 58.6 kg
[2019-02-04 07:24] LABS: BASOPHILS 0.4 % (0-2); EOSINOPHILS 0.8 % (0-7); HEMOGLOBIN 11.2 g/dL (13.5-17.5); IMMATURE GRANULOCYTES 0.3 % (0-5); LYMPHOCYTES 18.3 % (15-50); MCH 28.9 pg (26.0-34.0); MCHC 33.9 g/dL (31.0-37.0); MCV 85.1 fL (80.0-100.0); MEAN PLATELET VOLUME 9.1 fL (7.4-10.4); NEUTROPHILS 73.2 % (40-80); RBC 3.88 10x6/uL (4.20-6.10); WBC 9.5 10x3/uL (4.8-10.8)
[2019-02-04 07:25] LABS: PLATELET COUNT 334 10x3/uL (130-400)
[2019-02-04 07:43] LABS: ALBUMIN 2.2 g/dL (3.4-5.0); ALKALINE PHOSPHATASE 218 U/L (46-116); ALT (SGPT) 14 U/L (10-68); BILIRUBIN - TOTAL 0.67 mg/dL (0.2-1.3); CALC OSMOLALITY 265 mosm/kg (275-300); CALCIUM 8.1 mg/dL (8.5-10.1); CARBON DIOXIDE 25.7 mmol/L (21.0-32.0); CHLORIDE - SERUM 99 mmol/L (98-107); CREATININE - SERUM 0.6 mg/dL (0.6-1.3); GLUCOSE 120 mg/dL (74-106); MAGNESIUM - SERUM 1.8 mg/dL (1.8-2.4); PRO BNP 297 pg/mL (0-125); PROTEIN - SERUM 8.8 g/dL (6.4-8.2); SODIUM 134 mmol/L (136-145); UREA NITROGEN 5 mg/dL (7-18); eGFR NON AFRICAN AMERICAN > 90 mL/min (90-120)
[2019-02-04 07:47] LABS: POTASSIUM - SERUM 2.9 mmol/L (3.5-5.1)
[2019-02-04] MEDS ORDERED: PYRAZINAMIDE500 MG PO (08:25)
[2019-02-04] MEDS ORDERED: VITAMIN B-625 MG PO (08:26)
[2019-02-04] MEDS ORDERED: MYAMBUTOL100 MG PO (08:26)
[2019-02-04 08:47] LABS: APPEARANCE CLEAR (CLEAR); BILIRUBIN NEGATIVE (NEGATIVE); COLOR DK YELLOW (YELLOW); GLUCOSE NEGATIVE (NEGATIVE); KETONE NEGATIVE (NEGATIVE); NITRITE NEGATIVE (NEGATIVE); PROTEIN NEGATIVE (NEGATIVE); SPECIFIC GRAVITY 1.015 (1.005-1.020); UROBILINOGEN NORMAL (NORMAL)
[2019-02-04 08:48] LABS: BACTERIA FEW /hpf (NEGATIVE); EPITHELIAL CELLS 0-5 /hpf (0-5); WHITE CELLS - URINE 0-5 /hpf (NEGATIVE)
--- NOTE | 2019-02-04 08:56 | NUR ---
I spoke with [facility] Hernandez Chris regarding patient and compliance with medication. Patient no longer requires isolation he has recieved 31 days of consistent treatment. Patients current medication treatment is EMB 1000mg per day/PZA 1000mg per day/INH 300mg per day/Rifamin 600mg per day and B6 50mg per day.
[2019-02-04] MEDS ORDERED: FUROSEMIDE20 MG PO (10:12)
[2019-02-04] MEDS ORDERED: ALBUTEROL SULF8.5 GM INH (10:12)
[2019-02-04] MEDS ORDERED: VITAMIN B-1100 M1 PO (10:13)
[2019-02-04 10:51] VITALS: BP 112/68
== END 2019-02-04 10:35 | disposition home or self-care (01) ==
LOC: D.ER 06:38
PROVIDERS: Emergency Medicine
DX: R06.09 Other forms of dyspnea (principal); R53.1 Weakness; E87.6 Hypokalemia

== ENCOUNTER → 2019-04-08 08:57 | Outpatient (CLI) | payer OTHER ==
[2019-02-04 06:44] VITALS: BMI 16.6
[~2019-04-08 08:57] MED LIST changes: +ALBUTEROL SULF8.5 GM INH; +FUROSEMIDE20 MG PO; +MYAMBUTOL100 MG PO; +VITAMIN B-1100 M1 PO; +VITAMIN B-625 MG PO
== END | disposition home or self-care (01) ==
LOC: D.RAD 08:57
PROVIDERS: ATTEND Internal Medicine Infectious Disease
DX: A15.9 Respiratory tuberculosis unspecified (principal)

== ENCOUNTER → 2019-07-02 15:52 | Outpatient (CLI) | payer OTHER ==
[2019-02-04 06:44] VITALS: BMI 16.6
== END | disposition home or self-care (01) ==
LOC: D.RAD 15:52
PROVIDERS: ATTEND Internal Medicine Infectious Disease
DX: A15.9 Respiratory tuberculosis unspecified (principal)

== ENCOUNTER → 2019-09-17 07:27 | Outpatient (CLI) | payer OTHER ==
[2019-02-04 06:44] VITALS: BMI 16.6
== END | disposition home or self-care (01) ==
LOC: D.RAD 07:27
PROVIDERS: ATTEND Internal Medicine Infectious Disease
DX: A15.9 Respiratory tuberculosis unspecified (principal)

== ENCOUNTER → 2019-11-12 07:16 | Outpatient (CLI) | payer OTHER ==
[2019-02-04 06:44] VITALS: BMI 16.6
== END | disposition home or self-care (01) ==
LOC: D.RAD 07:16
PROVIDERS: ATTEND Internal Medicine Infectious Disease
DX: A15.9 Respiratory tuberculosis unspecified (principal)

== ENCOUNTER 2019-11-12 07:49 | Inpatient (IN) | payer SELFPAY ==
[~2019-11-12] VITALS: Ht 188 cm; Wt 66.2 kg
[2019-11-12 08:46] LABS: HEMATOCRIT 31.8 % (42.0-54.0); HEMOGLOBIN 11.1 g/dL (13.5-17.5); MCHC 34.9 g/dL (31.0-37.0); MCV 94.6 fL (80.0-100.0); PLATELET COUNT 316 10x3/uL (130-400); RBC 3.36 10x6/uL (4.20-6.10); RDW 14.2 % (11.5-14.5); WBC 12.2 10x3/uL (4.8-10.8)
[2019-11-12 08:55] VITALS: BP 106/56
[2019-11-12 09:03] LABS: BASOPHILS 3 % (0-2); LYMPHOCYTES 16 % (15-50); MONOCYTES 3 % (2-11); NEUTROPHILS 72 % (40-80); PLATELET ESTIMATE NORMAL
[2019-11-12 10:16] LABS: ALBUMIN 2.4 g/dL (3.4-5.0); BILIRUBIN - TOTAL 1.18 mg/dL (0.2-1.3); CALCIUM 7.6 mg/dL (8.5-10.1); CARBON DIOXIDE 27.3 mmol/L (21.0-32.0); CREATININE - SERUM 1.1 mg/dL (0.6-1.3); PROTEIN - SERUM 8.5 g/dL (6.4-8.2)
[2019-11-12 10:24] LABS: POTASSIUM - SERUM 2.3 mmol/L (3.5-5.1)
--- NOTE | 2019-11-12 10:30 | NUR ---
ATTEMPT TO CALL REPORT
--- NOTE | 2019-11-12 10:44 | NUR ---
ATTEMPT TO CALL REPORT, NURSE WILL CALL BACK
[2019-11-12 13:47] VITALS: BP 126/80
[2019-11-12 17:49] VITALS: BP 126/80; BMI 18.7
--- NOTE | 2019-11-12 18:55 | NUR ---
REPORT RECEIVED, PT CARE ASSUMED. INTRODUCED SELF AND WROTE NAME ON BOARD. PT LYING IN BED, WATCHING TV, AAOX4. REQUESTING WATER, PROVIDED. DENIES ANY OTHER NEEDS AT THIS TIME. BED IN LOWEST, SRX2, CALL LIGHT WITHIN REACH. WILL CTM.
[2019-11-12 20:45] VITALS: BP 84/51
[2019-11-13 00:45] VITALS: BP 87/43
--- NOTE | 2019-11-13 02:15 | NUR ---
PT RESTING QUIETLY, NO NEEDS EXPRESSED. CALL LIGHT IN REACH. WILL CTM.
[2019-11-13 04:45] VITALS: BP 83/42
[2019-11-13 06:07] LABS: BASOPHILS 1.2 % (0-2); EOSINOPHILS 2.1 % (0-7); HEMOGLOBIN 9.7 g/dL (13.5-17.5); IMMATURE GRANULOCYTES 0.5 % (0-5); LYMPHOCYTES 12.9 % (15-50); MCH 32.7 pg (26.0-34.0); MCHC 34.6 g/dL (31.0-37.0); MCV 94.3 fL (80.0-100.0); MEAN PLATELET VOLUME 10.7 fL (7.4-10.4); MONOCYTES 15.9 % (2-11); NEUTROPHILS 67.4 % (40-80); PLATELET COUNT 259 10x3/uL (130-400); RBC 2.97 10x6/uL (4.20-6.10); RDW 13.1 % (11.5-14.5); WBC 13.6 10x3/uL (4.8-10.8)
[2019-11-13 06:28] LABS: ALBUMIN 1.9 g/dL (3.4-5.0); ALKALINE PHOSPHATASE 94 U/L (30-120); ALT (SGPT) 19 U/L (10-68); CALC OSMOLALITY 265 mosm/kg (275-300); CALCIUM 7.3 mg/dL (8.5-10.1); CARBON DIOXIDE 26.4 mmol/L (21.0-32.0); CHLORIDE - SERUM 98 mmol/L (98-107); GLUCOSE 93 mg/dL (74-106); MAGNESIUM - SERUM 1.1 mg/dL (1.8-2.4); PHOSPHOROUS 2.3 mg/dL (2.5-4.9); PROTEIN - SERUM 7.6 g/dL (6.4-8.2); SODIUM 134 mmol/L (136-145); UREA NITROGEN 8 mg/dL (7-18)
[2019-11-13 06:30] LABS: CREATININE - SERUM 0.8 mg/dL (0.6-1.3); POTASSIUM - SERUM 2.3 mmol/L (3.5-5.1); eGFR NON AFRICAN AMERICAN > 90 mL/min (90-120)
[2019-11-13 11:03] VITALS: BP 91/53
[2019-11-13 18:08] LABS: ACID FAST SMEAR Negative (()); AFB SPECIMEN PROCESSING Concentration (())
[2019-11-13 20:29] VITALS: BP 92/58
--- NOTE | 2019-11-14 01:48 | NUR ---
INITIAL ROUNDS COMPLETED AT 1925 HRS. PT DENIED ANY DISCOMFORT. KCL 20MEQ PO GIVEN FOR K+2.3. FECES NOTED TO BED, LINENS AND BR. BR CLEANED. BED LINENS CHANGED PER PIN MACHINE OPERATOR. ASESSMENT COMPLETED AT 2100 HRS. VSS. ALERT AND ORIENTED TO PERSON, PLACE AND TIME. NELSON. LUNGS DIMINISHED IN BASES BILAT. IV TO R HAND WITH NS AT 20CC/HR. IV PATENT. PT UP TO BR WITHOUT PROBLEMS. GAIT EVEN AND STEADY. INFORMED OF RATIONALE FOR NPO AFTER MIDNIGHT. PT STATD UNDERSTANDING. PT CURRENTLY RESTING WITH EYES CLOSED. RESP EVEN AND REGULAR. SR UP X1,CALL LIGHT WITHIN REACH.
[2019-11-14 02:00] VITALS: BP 93/56
--- NOTE | 2019-11-14 04:11 | NUR ---
PT RESTING WITH EYES CLOSED. RESP EVEN AND REGULAR. SR UP X1, CALL LIGHT WITHIN REACH.
--- NOTE | 2019-11-14 05:51 | NUR ---
VSS THROUGHOUT NIGHT. SR EPR CM . PT DENIED ANY DISCOMFORT. NEEDS MET; WILL CONTINUE TO MONITOR.
[2019-11-14 06:50] LABS: HEMATOCRIT 27.6 % (42.0-54.0); HEMOGLOBIN 9.6 g/dL (13.5-17.5); MCH 32.5 pg (26.0-34.0); MCHC 34.8 g/dL (31.0-37.0); MCV 93.6 fL (80.0-100.0); MEAN PLATELET VOLUME 10.3 fL (7.4-10.4); PLATELET COUNT 261 10x3/uL (130-400); RBC 2.95 10x6/uL (4.20-6.10); RDW 13.1 % (11.5-14.5); WBC 11.6 10x3/uL (4.8-10.8)
[2019-11-14 07:02] LABS: CALCIUM 7.3 mg/dL (8.5-10.1); CARBON DIOXIDE 26.5 mmol/L (21.0-32.0); CHLORIDE - SERUM 98 mmol/L (98-107); CREATININE - SERUM 0.8 mg/dL (0.6-1.3); GLUCOSE 110 mg/dL (74-106); SODIUM 130 mmol/L (136-145); eGFR NON AFRICAN AMERICAN > 90 mL/min (90-120)
[2019-11-14 07:03] LABS: BASOPHILS 1.2 % (0-2); CALC OSMOLALITY 258 mosm/kg (275-300); EOSINOPHILS 2.4 % (0-7); IMMATURE GRANULOCYTES 0.5 % (0-5); LYMPHOCYTES 14.6 % (15-50); MONOCYTES 16.1 % (2-11); NEUTROPHILS 65.2 % (40-80); PHOSPHOROUS 1.6 mg/dL (2.5-4.9); UREA NITROGEN 4 mg/dL (7-18)
[2019-11-14 07:04] LABS: POTASSIUM - SERUM 2.7 mmol/L (3.5-5.1)
[2019-11-14 09:25] VITALS: BP 114/56
[2019-11-14 14:47] VITALS: BP 99/70
[2019-11-14 21:32] VITALS: BP 88/53
--- NOTE | 2019-11-14 23:17 | NUR ---
ASSESSMENT COMPLETED AT 2005 HRS. VSS SBP 88 BUT IS PT'S NORMAL. ALERT AND ORIENTED TO PERSON, PLACE AND TIME. NELSON. IV TO R HAND SL. LUNGS DIMINISHED IN BASES BILAT. PT HAS PRODUCTIVE COUGH RED/BROWN IN COLOR. NELSON. PALPABLE PERIPHERAL PULSES. K+ 3.0. KCL 40MEQ PO GIVEN PER ELECTROLYTE PROTOCOL AT 2215 HRS. EKG DONE AT THAT TIME. PT NOT COOPERATIVE DURING EKG. WOULD NOT STAY STILL. SR UP X1, CALL LIGHT WITHIN REACH.
--- NOTE | 2019-11-15 02:13 | NUR ---
PT RESTING WITH EYES CLOSED. RESP EVEN AND REGULAR. CALL LIGHT WITHIN REACH.
--- NOTE | 2019-11-15 03:44 | NUR ---
BP 94/55. MORPHINE 1MG SIVP GIVEN FOR C/O CHRONIC NECK PAIN.
[2019-11-15 04:30] VITALS: BP 94/55
[2019-11-15 05:44] LABS: EOSINOPHILS 3.1 % (0-7); HEMATOCRIT 28.7 % (42.0-54.0); HEMOGLOBIN 9.6 g/dL (13.5-17.5); IMMATURE GRANULOCYTES 0.5 % (0-5); LYMPHOCYTES 15.5 % (15-50); MCH 31.6 pg (26.0-34.0); MCHC 33.4 g/dL (31.0-37.0); MCV 94.4 fL (80.0-100.0); MEAN PLATELET VOLUME 10.3 fL (7.4-10.4); MONOCYTES 16.8 % (2-11); NEUTROPHILS 63.1 % (40-80); RBC 3.04 10x6/uL (4.20-6.10); RDW 13.2 % (11.5-14.5); WBC 9.7 10x3/uL (4.8-10.8)
[2019-11-15 06:10] LABS: PLATELET COUNT 323 10x3/uL (130-400)
[2019-11-15 06:19] LABS: CALC OSMOLALITY 266 mosm/kg (275-300); CALCIUM 7.1 mg/dL (8.5-10.1); CARBON DIOXIDE 23.7 mmol/L (21.0-32.0); CHLORIDE - SERUM 102 mmol/L (98-107); CREATININE - SERUM 0.8 mg/dL (0.6-1.3); GLUCOSE 96 mg/dL (74-106); SODIUM 135 mmol/L (136-145); UREA NITROGEN 3 mg/dL (7-18); eGFR NON AFRICAN AMERICAN > 90 mL/min (90-120)
[2019-11-15 06:24] LABS: MAGNESIUM - SERUM 1.3 mg/dL (1.8-2.4); PHOSPHOROUS 2.1 mg/dL (2.5-4.9); POTASSIUM - SERUM 3.5 mmol/L (3.5-5.1)
--- NOTE | 2019-11-15 06:31 | NUR ---
PT STATED IV MORPPHINE EASED HIS CHRONIC PAIN. NPO FOR AM BRONCHOSCOPY WITH TIVA. NEEDS MET; WILL CONTINUE TO MONITOR.
[2019-11-15 10:22] VITALS: BP 90/55
[2019-11-15 11:37] VITALS: BP 113/73
--- NOTE | 2019-11-15 14:12 | MORECARE ---
CASE MANAGEMENT DISCHARGE SUMMARY PATIENT: QUE SPENCE UNIT: [id number] ADM DATE: 11/12/19 AGE: 63 : 57 SEX: M ROOM/BED: D.2140 AUTHOR: DAVID ROCHA PHYSICIAN: REFERRING PHYSICIAN: SARAH SERRATO DO DATE OF SERVICE: 11/15/19 Discharge Plan Patient Name: QUE SPENCE [facility] [facility] 1955 Planned Disposition: Anticipated Discharge Date: Discharge Date: Expected LOS: Initial Reviewer: [email or web address] Initial Review Date: 11/12/2019 Generated: 11/15/19 3:11 pm Comments DCP- Discharge Planning Updated by [email or web address]: Maday Wiley on 11/15/19 1:[address] CM CALLED PT ROOM AGAIN FOR DC PLAN. PT NOT ANSWERING PHONE AT THIS TIME. WILL CONTINUE TO ASSIST IN DC PLANNING. MADAY WILEY DCP- Discharge Planning Updated by [email or web address]: Maday Wiley on 11/15/19 10:[address] CM ATEMPTED TO CALL PT FOR DC PLAN. PT PHONE IN ROOM BUSY. WILL CONTINUE ATTEMPTING DC PLAIN. MADAY WILEY MSN,RN,CM Patient Name: QUE SPENCE Page [id number] at 1412 All edits/amendments must be made on the electronic document DICTATION DATE: 11/15/19 1411 FOOD SERVER: PHU 11/15/19 1411 RPT#: [id number] DC DATE: STATUS: ADM IN [facility] [address] [place] [address] END OF REPORT
[2019-11-15 15:39] VITALS: BP 115/62
[2019-11-15 20:00] VITALS: BP 97/46
[2019-11-16 06:51] LABS: BASOPHILS 1.2 % (0-2); EOSINOPHILS 3.5 % (0-7); HEMATOCRIT 29.5 % (42.0-54.0); HEMOGLOBIN 10.2 g/dL (13.5-17.5); IMMATURE GRANULOCYTES 0.5 % (0-5); MCH 32.5 pg (26.0-34.0); MCHC 34.6 g/dL (31.0-37.0); MCV 93.9 fL (80.0-100.0); MEAN PLATELET VOLUME 9.9 fL (7.4-10.4); MONOCYTES 16.8 % (2-11); PLATELET COUNT 384 10x3/uL (130-400); RBC 3.14 10x6/uL (4.20-6.10); RDW 13.3 % (11.5-14.5); WBC 8.2 10x3/uL (4.8-10.8)
[2019-11-16 07:11] LABS: CALC OSMOLALITY 266 mosm/kg (275-300); CALCIUM 7.5 mg/dL (8.5-10.1); CARBON DIOXIDE 24.3 mmol/L (21.0-32.0); CHLORIDE - SERUM 103 mmol/L (98-107); CREATININE - SERUM 0.7 mg/dL (0.6-1.3); GLUCOSE 94 mg/dL (74-106); MAGNESIUM - SERUM 1.3 mg/dL (1.8-2.4); POTASSIUM - SERUM 3.1 mmol/L (3.5-5.1); SODIUM 135 mmol/L (136-145); eGFR NON AFRICAN AMERICAN > 90 mL/min (90-120)
[2019-11-16 07:20] LABS: PHOSPHOROUS 2.8 mg/dL (2.5-4.9); UREA NITROGEN 4 mg/dL (7-18)
[2019-11-16 08:48] VITALS: BP 90/56
--- NOTE | 2019-11-16 09:00 | NUR ---
UPON WALKING IN, PT STATES HIS FOOD IS COLD. ANOTHER TRAY ORDERED AND BROUGHT IN AND ENSURED FOOD WAS HOT. PT SEEMS IRRITATED WITH STAFF THIS AM. ASKED IF THERE WAS ANYTHING I COULD DO TO MAKE IT BETTER, HE STATES NO. ENSURED THAT HE WOULD GET HIS FOOD ON TIME AT LUNCH. OTHERWISE, DENIES NEEDS OR PAIN AT THIS TIME. CALL LIGHT WTIHIN REACH. BED IN LOWEST POSITION. WILL CONTINUE TO MONITOR.
[2019-11-16 09:11] LABS: BILIRUBIN NEGATIVE (NEGATIVE); GLUCOSE NEGATIVE (NEGATIVE); KETONE NEGATIVE (NEGATIVE); NITRITE NEGATIVE (NEGATIVE); UROBILINOGEN NORMAL (NORMAL)
--- NOTE | 2019-11-16 09:55 | NUR ---
I spoke with Hernandez Anthony at [facility]. Patient has completed treatment for TB. Sputum cultures have been negative during treatment.
[2019-11-16 11:49] VITALS: BP 105/71
[2019-11-16 15:29] VITALS: BP 111/70
--- NOTE | 2019-11-16 17:03 | NUR ---
I have reviewed this patient and I concur with the Shift Assessment completed by the Licensed Practical Nurse today this shift.
--- NOTE | 2019-11-16 17:42 | MORECARE ---
CASE MANAGEMENT DISCHARGE SUMMARY PATIENT: QUE RUDD AYLA UNIT: [id number] ADM DATE: 11/12/19 AGE: 63 : 57 SEX: M ROOM/BED: D.2140 AUTHOR: JOSEFINA,DOC PHYSICIAN: REFERRING PHYSICIAN: SARAH SERRATO DO DATE OF SERVICE: 11/16/19 Discharge Plan Patient Name: QUE RDUD Facility: [facility]:[place] : 1955 Planned Disposition: Anticipated Discharge Date: Discharge Date: Expected LOS: Initial Reviewer: [email or web address] Initial Review Date: 11/12/2019 Generated: 11/16/19 6:42 pm DCP- Discharge Planning Updated by [email or web address]: Maday Wiley on 11/15/19 1:[address] CM CALLED PT ROOM AGAIN FOR DC PLAN. PT NOT ANSWERING PHONE AT THIS TIME. WILL CONTINUE TO ASSIST IN DC PLANNING. MADAY WILEY DCP- Discharge Planning Updated by [email or web address]: Maday Wiley on 11/15/19 10:[address] CM ATEMPTED TO CALL PT FOR DC PLAN. PT PHONE IN ROOM BUSY. WILL CONTINUE ATTEMPTING DC PLAIN. MADAY WILEY MSN,RN,CM DCPIA - Discharge Planning Initial Assessment Updated by [email or web address]: Maday Wiley on 11/16/19 5:38 pm * Is the patient Alert and Oriented? Yes * How many steps to enter\exit or inside your home? 0/0 * PCP pcp in [place] will need pcp in [place] * Pharmacy [facility] * Preadmission Environment Home Alone * ADLs Independent * Equipment Cane * List name and contact numbers for known caregivers / representatives who currently or will assist patient after discharge: ankita Rudd brother [phone] * Verbal permission to speak to the caregivers and representatives has been obtained from the patient. Yes * Community resources currently utilized None * Additional services required to return to the preadmission environment? No * Can the patient safely return to the preadmission environment? Yes * Has this patient been hospitalized within the prior 30 days at any hospital? No Last DP export: 11/15/19 1:12 p Patient Name: QUE RUDD Page 29391 at 1742 All edits/amendments must be made on the electronic document DICTATION DATE: 11/16/191741 NURSING MANAGER: HPU 11/16/191741 RPT#: [id number] DC DATE: STATUS: ADM IN [facility] [address] [place] [address] END OF REPORT
--- NOTE | 2019-11-16 17:51 | MORECARE ---
CASE MANAGEMENT DISCHARGE SUMMARY PATIENT: QUE RUDD UNIT: [id number] ADM DATE: 11/12/19 AGE: 63 : 57 SEX: M ROOM/BED: D.2140 AUTHOR: DAVID ROCHA PHYSICIAN: REFERRING PHYSICIAN: SARAH SERRATO DO DATE OF SERVICE: 11/16/19 Discharge Plan Patient Name: QUE RUDD Facility: [facility]:[place] : 1955 Planned Disposition: Anticipated Discharge Date: Discharge Date: Expected LOS: Initial Reviewer: [email or web address] Initial Review Date: 11/12/2019 Generated: 11/16/19 6:50 pm Comments DCP- Discharge Planning Updated by [email or web address]: Maday Wiley on 11/16/19 4:[address] Patient Name: QUE RUDD Admission Status: ER Accout number: [id number] Admission Date: 11-12-2019 : 1955 Admission Diagnosis:HEMOPTYSIS Attending: SARAH SERRATO Current LOS: 4 Anticipated DC Date: Planned Disposition: Primary Insurance: UNINSURED DISCOUNT PLAN Discharge Planning Comments: CM met with patient via phone to complete initial dc planning assessment. CM educated patient on the CM role and verbal consent given by patient to complete assessment. CM verified patient's address, phone number, and emergency contact phone numbers. Patient lives at home alone and is independent with his ADL's. States he uses a cane to assist him while ambulating. At discharge patient plans to return home and feels this is a safe discharge. CM discussed availability of home health, rehab services, and medical equipment. Patient denied known discharge needs at this time. Declination verbalized for home health services. Transportation provider at discharge will be Jesús his brother. He can be reached at [phone]. CM will continue to follow and will assist as needed with dc plans/needs. Coal Wheeler: Maday Wiley DCP- Discharge Planning Updated by [email or web address]: Maday Wiley on 11/15/19 1:[address] CM CALLED PT ROOM AGAIN FOR DC PLAN. PT NOT ANSWERING PHONE AT THIS TIME. WILL CONTINUE TO ASSIST IN DC PLANNING. MADAY WILEY DCP- Discharge Planning Updated by [email or web address]: Maday Wiley on 11/15/19 10:[address] CM ATEMPTED TO CALL PT FOR DC PLAN. PT PHONE IN ROOM BUSY. WILL CONTINUE ATTEMPTING DC PLAIN. MADAY WILEY MSN,RN,CM DCPIA - Discharge Planning Initial Assessment Updated by [email or web address]: Maday Wiley on 11/16/19 5:38 pm * Is the patient Alert and Oriented? Yes * How many steps to enter\exit or inside your home? 0/0 * PCP pcp in [place] will need pcp in [place] * Pharmacy [facility] * Preadmission Environment Home Alone * ADLs Independent * Equipment Cane * List name and contact numbers for known caregivers / representatives who currently or will assist patient after discharge: jesús Rudd brother [phone] * Verbal permission to speak to the caregivers and representatives has been obtained from the patient. Yes * Community resources currently utilized None * Additional services required to return to the preadmission environment? No * Can the patient safely return to the preadmission environment? Yes * Has this patient been hospitalized within the prior 30 days at any hospital? No Last DP export: 11/16/19 4:42 p Patient Name: QUE RUDD Page 14564 at 1751 All edits/amendments must be made on the electronic document DICTATION DATE: 11/16/191750 SATELLITE TV INSTALLER: PHU 11/16/191750 RPT#: [id number] DC DATE: STATUS: ADM IN [facility] [address] [place] [address] END OF REPORT
[2019-11-16 20:00] VITALS: BP 118/54
[2019-11-17 06:32] LABS: CALC OSMOLALITY 261 mosm/kg (275-300); CALCIUM 7.6 mg/dL (8.5-10.1); CARBON DIOXIDE 22.6 mmol/L (21.0-32.0); CHLORIDE - SERUM 102 mmol/L (98-107); CREATININE - SERUM 0.8 mg/dL (0.6-1.3); GLUCOSE 92 mg/dL (74-106); MAGNESIUM - SERUM 1.2 mg/dL (1.8-2.4); PHOSPHOROUS 2.4 mg/dL (2.5-4.9); SODIUM 132 mmol/L (136-145); UREA NITROGEN 3 mg/dL (7-18); eGFR NON AFRICAN AMERICAN > 90 mL/min (90-120)
[2019-11-17 06:39] LABS: POTASSIUM - SERUM 3.8 mmol/L (3.5-5.1)
--- NOTE | 2019-11-17 07:23 | NUR ---
WALKING ROUNDS COMPLETE, PT DENIES PAIN OR NEEDS AT THIS TIME, CALL LIGHT IN REACH, WILL MONITOR, BED LOW AND LOCKED, PT ON DROPLET ISOLATION FOR TB,
[2019-11-17 07:52] LABS: BASOPHILS 1.2 % (0-2); EOSINOPHILS 2.6 % (0-7); HEMATOCRIT 28.8 % (42.0-54.0); HEMOGLOBIN 9.7 g/dL (13.5-17.5); IMMATURE GRANULOCYTES 0.4 % (0-5); MCH 31.8 pg (26.0-34.0); MCHC 33.7 g/dL (31.0-37.0); MCV 94.4 fL (80.0-100.0); MEAN PLATELET VOLUME 10.1 fL (7.4-10.4); MONOCYTES 16.8 % (2-11); PLATELET COUNT 417 10x3/uL (130-400); RBC 3.05 10x6/uL (4.20-6.10); RDW 13.3 % (11.5-14.5); WBC 10.4 10x3/uL (4.8-10.8)
[2019-11-17 08:51] VITALS: BP 124/62
--- NOTE | 2019-11-17 10:30 | NUR ---
GAVE PT SCHEDULED MEDS, STARTED PT ON MAG RIDERS, NO OTHER NEEDS VOICED, COLLECTED SPUTUM AND SENT TO LAB. WILL MONITOR
[2019-11-17 14:17] VITALS: Ht 188 cm; Wt 66.2 kg
[2019-11-18 04:00] VITALS: BP 140/59
[2019-11-18 07:09] LABS: EOSINOPHILS 3.3 % (0-7); HEMATOCRIT 28.6 % (42.0-54.0); HEMOGLOBIN 9.6 g/dL (13.5-17.5); IMMATURE GRANULOCYTES 0.6 % (0-5); LYMPHOCYTES 14.2 % (15-50); MCH 31.5 pg (26.0-34.0); MCHC 33.6 g/dL (31.0-37.0); MCV 93.8 fL (80.0-100.0); MEAN PLATELET VOLUME 9.4 fL (7.4-10.4); MONOCYTES 17.7 % (2-11); NEUTROPHILS 63.2 % (40-80); PLATELET COUNT 443 10x3/uL (130-400); RBC 3.05 10x6/uL (4.20-6.10); RDW 13.2 % (11.5-14.5); WBC 9.9 10x3/uL (4.8-10.8)
[2019-11-18 07:33] LABS: CALC OSMOLALITY 260 mosm/kg (275-300); CALCIUM 7.8 mg/dL (8.5-10.1); CHLORIDE - SERUM 102 mmol/L (98-107); CREATININE - SERUM 0.9 mg/dL (0.6-1.3); GLUCOSE 89 mg/dL (74-106); POTASSIUM - SERUM 3.4 mmol/L (3.5-5.1); SODIUM 132 mmol/L (136-145); UREA NITROGEN 3 mg/dL (7-18); eGFR NON AFRICAN AMERICAN > 90 mL/min (90-120)
[2019-11-18] MEDS ORDERED: OMNICEF300 MG PO (12:04)
[2019-11-18] MEDS ORDERED: ALBUTEROL SULF8.5 GM INH (12:05)
[2019-11-18] MEDS ORDERED: MUCINEX DM ER1 EAC1 PO (12:05)
[2019-11-18] MEDS ORDERED: TESSALON PERLE100 MG PO (12:05)
[2019-11-18 16:09] LABS: ACID FAST SMEAR Negative (()); AFB SPECIMEN PROCESSING Concentration (())
--- NOTE | 2019-11-18 17:33 | NUR ---
SALINE LOCK REMOVED AND DRESSING APPLIED, NO BLEEDING NOTED. DISCHARGE INSTRUCTIONS DISCUSSED WITH PATIENT AND QUESTIONS ANSWERED, AWAITING BROTHER TO ARRIVE.
--- NOTE | 2019-11-18 18:07 | NUR ---
TO EXIT VIA WHEELCHAIR AND TO WAITING CAR AND HOME WITH BROTHER.
--- NOTE | 2019-11-22 09:23 | MORECARE ---
CASE MANAGEMENT DISCHARGE SUMMARY PATIENT: QUE RUDD UNIT: [id number] ADM DATE: 11/12/19 AGE: 63 : 57 SEX: M ROOM/BED: D.2140 AUTHOR: DAVID ROCHA PHYSICIAN: REFERRING PHYSICIAN: SARAH SERRATO DO DATE OF SERVICE: 11/22/19 Discharge Plan Patient Name: QUE RUDD Facility: [facility]:[place] : 1955 Planned Disposition: Anticipated Discharge Date: Discharge Date: 11/18/2019 Expected LOS: Initial Reviewer: [email or web address] Initial Review Date: 11/12/2019 Generated: 11/22/19 10:22 am Comments DCP- Discharge Planning Updated by [email or web address]: Maday Wiley on 11/16/19 4:[address] Patient Name: QUE RUDD Admission Status: ER Accout number: [id number] Admission Date: 11-12-2019 : 1955 Admission Diagnosis:HEMOPTYSIS Attending: SARAH SERRATO Current LOS: 4 Anticipated DC Date: Planned Disposition: Primary Insurance: UNINSURED DISCOUNT PLAN Discharge Planning Comments: CM met with patient via phone to complete initial dc planning assessment. CM educated patient on the CM role and verbal consent given by patient to complete assessment. CM verified patient's address, phone number, and emergency contact phone numbers. Patient lives at home alone and is independent with his ADL's. States he uses a cane to assist him while ambulating. At discharge patient plans to return home and feels this is a safe discharge. CM discussed availability of home health, rehab services, and medical equipment. Patient denied known discharge needs at this time. Declination verbalized for home health services. Transportation provider at discharge will be Jesús his brother. He can be reached at [phone]. CM will continue to follow and will assist as needed with dc plans/needs. Microbial Specialist: Maday Wiley DCP- Discharge Planning Updated by [email or web address]: Maday Wiley on 11/15/19 1:[address] CM CALLED PT ROOM AGAIN FOR DC PLAN. PT NOT ANSWERING PHONE AT THIS TIME. WILL CONTINUE TO ASSIST IN DC PLANNING. MADAY WILEY DCP- Discharge Planning Updated by [email or web address]: Maday Wiley on 11/15/19 10:[address] CM ATEMPTED TO CALL PT FOR DC PLAN. PT PHONE IN ROOM BUSY. WILL CONTINUE ATTEMPTING DC PLAIN. MADAY WILEY MSN,RN,CM DCPIA - Discharge Planning Initial Assessment Updated by [email or web address]: Maday Wiley on 11/16/19 5:38 pm * Is the patient Alert and Oriented? Yes * How many steps to enter\exit or inside your home? 0/0 * PCP pcp in [place] will need pcp in [place] * Pharmacy [facility] * Preadmission Environment Home Alone * ADLs Independent * Equipment Cane * List name and contact numbers for known caregivers / representatives who currently or will assist patient after discharge: jesús Rudd brother [phone] * Verbal permission to speak to the caregivers and representatives has been obtained from the patient. Yes * Community resources currently utilized None * Additional services required to return to the preadmission environment? No * Can the patient safely return to the preadmission environment? Yes * Has this patient been hospitalized within the prior 30 days at any hospital? No Last DP export: 11/16/19 4:51 p Patient Name: QUE RUDD Page 29945 at 0923 All edits/amendments must be made on the electronic document DICTATION DATE: 11/22/19921 MEAT BONER: PHU 11/22/19921 RPT#: [id number] DC DATE:11/18/19 STATUS: DIS IN [facility] [address] [place] [address] END OF REPORT
== END 2019-11-18 18:10 | disposition home or self-care (01) | DRG 177 ==
LOC: D.ER 07:49 → D.M2 10:19
PROVIDERS: Family Medicine; Internal Medicine Pulmonary Disease; ADMIT Family Medicine; ATTEND Family Medicine
DX: J15.6 Pneumonia due to other Gram-negative bacteria (principal); E43 Unspecified severe protein-calorie malnutrition; A15.9 Respiratory tuberculosis unspecified; J44.0 Chronic obstructive pulmonary disease with (acute) lower respiratory infection; F17.203 Nicotine dependence unspecified, with withdrawal; Z68.1 Body mass index [BMI] 19.9 or less, adult; G89.29 Other chronic pain; M54.9 Dorsalgia, unspecified; E78.5 Hyperlipidemia, unspecified; D64.9 Anemia, unspecified; E87.6 Hypokalemia; E83.42 Hypomagnesemia

== ENCOUNTER 2019-11-22 06:51 | Inpatient (IN) | payer SELFPAY ==
[2019-11-22] VITALS (12 sets, daily range): BP systolic 65–97; BP diastolic 53–66; BMI 18.7
[~2019-11-22] VITALS: Ht 188 cm; Wt 66.2 kg
--- NOTE | ~2019-11-22 | HEMODYNAMI ---
PATIENT:QUE SPENCE MEDICAL RECORD: [id number] : 57 [facility] AD[facility]ION DATE: 11/22/19 Generatedon:11/30/201917:34 Patient name: QUE SPENCE Patient #: [id number] SSN: : 1955 Date of study: 11/30/2019 Page: Of Hemodynamic Procedure Report Patient Data Patient Demographics Procedure consent was obtained First Name: QUE Gender: Male Last Name: JORDY : 1955 Middle Initial: AYLA Age: 63 year(s) Patient #: [id number] Race: Black Additional ID: [id number] Contact details Address: [address] [place] [address] State: [place] City: [facility] Zip code: [address] Past Medical History Allergies: No known allergies Admission Admission Data Admission Date: 11/22/2019 Admission Time: 16:48 Room #: [facility] Height (in.): 74 BSA: 1.9 (m2) Height (cm.): 187.96 BMI: 18.62 (kg/m2) Weight (lbs.): 145 Weight (kg.): 65.77 Procedure Procedure Types Cath Procedure Peripheral Cath Diagnostic Procedure Asset Protection Professional Peripheral Procedures Thoracic/Pulmonary Pulmonary Arteriogram Bilat Procedure Description Procedure Date Procedure Date: 11/30/2019 Procedure Start Time: 16:56 Procedure Staff Name Function Darren Rangel MD Performing Physician Tamiko Mcnally RT Flask Fitter Alisa Ray RN Nurse Gus Manning RT Scrub Procedure Data Cath Procedure Fluoroscopy Diagnostic fluoroscopy Total fluoroscopy Time: 8.5 time: 8.5 min min Diagnostic fluoroscopy Total fluoroscopy dose: 63 dose: 63 mGy mGy Contrast Material Contrast Material Type Amount (ml) Isovue 300 55 Diagnostic catheters Device Type Used For End Catheter Placement Cook Grollman Pigtail 6.7Fr catheter ([id number]) Procedure Medications Medication Administration Route Dosage Lidocaine 1% added to field 20 Heparin Flush Bag added to field 3 bags (1000units/500ml NS) Benadryl I.V. 50 mg Versed I.V. 1 mg Fentanyl I.V. 50 mcg Versed I.V. 1 mg Fentanyl I.V. 50 mcg Hemodynamics Rest BSA: 1.9 (m2) O2 Consumption: Estimated: 234.09 (ml/min) O2 Consumption indexed: Estimated:123.21 (ml/min/m) Heart Rate: 86 (bpm) Snapshots Pre Cath Intra NCS Post Cath Vital Signs Time Heart Resp SPO2 etCO2 NIBP (mmHg) Rhythm Pain Sedation Rate (ipm) (%) (mmHg) Status Level (bpm) 16:45:50 86 19 23.9 110/77(90) NSR 0 (11) 10(A) , No pain 16:49:56 78 21 17.1 115/74(99) NSR 0 (11) 10(A) , No pain 16:54:04 80 18 14.9 116/76(100) NSR 0 (11) 10(A) , No pain 16:58:13 79 32 95 4.4 109/72(90) NSR 0 (11) 10(A) , No pain 17:02:17 97 8 3.7 109/79(98) NSR 0 (11) 8(A) , No pain 17:06:21 94 27 98 5.9 107/79(94) NSR 0 (11) 8(A) , No pain 17:10:25 85 22 99 0 106/76(91) NSR 0 (11) 8(A) , No pain 17:14:28 87 24 0 108/74(89) NSR 0 (11) 8(A) , No pain 17:18:34 83 19 0 106/75(85) NSR 0 (11) 8(A) , No pain 17:22:38 84 17 98 0 105/77(91) NSR 0 (11) 8(A) , No pain 17:26:39 89 18 100 20.1 114/80(103) NSR 0 (11) 8(A) , No pain 17:30:47 76 16 100 21.6 105/72(93) NSR 0 (11) 8(A) , No pain Medications Time Medication Route Dose Verified Delivered Reason Notes Effe ctiveness by by 16:54:47 Lidocaine 1% added 20ml Darren Banks for local to vial Claire Rangel anesthetic field MD [facility] 16:55:09 Heparin Flush added 3 Darren Banks used for Bag to bags Claire Rangel procedure (1000units/500ml field MD [facility] NS) 16:55:26 Benadryl I.V. 50 mg Darren Cuellar Per Claire Ray RN physician 16:59:48 Versed I.V. 1 mg Darren Cuellar for Claire Ray RN sedation 17:00:01 Fentanyl I.V. 50 Darren Cuellar for mcg Claire Ray RN sedation 17:15:21 Versed I.V. 1 mg Darren Cuellar for Claire Ray RN sedation 17:15:31 Fentanyl I.V. 50 Darren Cuellar for mcg Claire Ray RN sedation Procedure Log Time Note 16:14:03 Patient Height : 74 inches 16:14:08 Patient Weight : 145 lbs 16:14:53 Use device set IR Diagnostic 16:14:55 Tegaderm 4 x 4 (1626W) opened to sterile field. 16:14:56 Sterile Angiographic Pack opened to sterile field. 16:14:58 Bag Decanter (2002S) opened to sterile field. 16:15:00 ACIST Manifold (30775) opened to sterile field. 16:15:01 ACIST Hand Control (92946) opened to sterile field. 16:15:02 ACIST Syringe (22125) opened to sterile field. 16:15:17 TUBING Contrast Injection High Pressure (RFH854D) opened to sterile field. 16:15:19 - 16:32:48 Time tracking: Regular hours (M-F 7:00 - 5:00) 16:32:57 Plan of Care:Hemodynamics will remain stable., Cardiac rhythm will remain stable., Comfort level will be maintained., Respiratory function will remain adequate., Patient/ family verbilizes understanding of procedure., Procedure tolerated without complication., Recovers from procedure without complications.. 16:37:31 Patient received from Med/Surg to IR Alert and oriented. Tansferred to table in Supine position. 16:37:36 Signed procedure consent form obtained from patient. 16:37:43 H&P Date Dictated: 11/30/2019 Within 30 days and on chart.. 16:37:46 Pre-procedure instructions explained to patient. 16:37:46 Pre-op teaching completed and patient verbalized understanding. 16:37:49 Family unavailable. 16:37:52 Patient NPO since Midnight. 16:37:53 - 16:38:10 Patient allergic to No known allergies 16:38:15 Is the patient allergic to Iodine/contrast media? No. 16:38:23 Is patient on blood thinner?No 16:38:26 Patient diabetic? No. 16:38:30 - 16:38:31 ----Pre-sedation anethsthesia assessment.---- 16:38:36 Previous problem with sedation/anesthesia? No ? 16:38:40 Snore? Yes 16:38:45 Sleep apnea? No 16:38:52 Deviated septum? No 16:38:59 Opens mouth fully? Yes 16:39:02 Sticks out tongue? Yes 16:39:26 Airway obstruction? No ? 16:39:31 Dentures? No ? 16:39:43 Right groin area was prepped with chlora-prep and draped in sterile fashion 16:39:47 - 16:40:00 Micropuncture VSI 4FR kit opened to sterile field. 16:40:12 BENTSON 145cm wire ([id number]) opened to sterile field. 16:40:43 SHEATH 7FR Kyburz (EIV274) opened to sterile field. 16:41:24 - 16:41:32 Fire Safety Assessment: A--An alcohol-based skin anteseptic being used preoperatively., C--Open oxygen or nitrous oxide is being used. 16:44:48 Vital chart was started 16:45:49 ECG and BP/O2 sat monitors applied to patient. 16:45:50 Baseline sample Acquired. 16:45:53 - 16:45:53 Full Disclosure recording started 16:54:47 Lidocaine 1% 20ml vial added to field was administered by Darren singh MD; for local anesthetic; Verbal order read back and verified. 16:55:09 Physician arrived 16:55:09 Heparin Flush Bag (1000units/500ml NS) 3 bags added to field was administered by Darren Rangel MD; used for procedure; Verbal order read back and verified. 16:55:15 --------ALL STOP TIME OUT------ 16:55:18 Final Timeout: patient, procedure, and site verified with staff and physician. All members of the team are in agreement. 16:55:26 Benadryl 50 mg I.V. was administered by Alisa Ray RN; Per physician ; Verbal order read back and verified. 16:56:39 Procedure started. 16:56:58 Local anesthetic to right femoral vein with Lidocaine 1% by Darren Rangel MD.INITIAL ACCESS ONLY 16:58:09 Venous access obtained using ultrasound guidance. 16:59:48 Versed 1 mg I.V. was administered by Alisa Ray RN; for sedation; Verbal order read back and verified. 17:00:01 Fentanyl 50 mcg I.V. was administered by Alisa Ray RN; for sedation ; Verbal order read back and verified. 17:01:03 SHEATH 7FR Destination (RSR04) opened to sterile field. 17:02:49 A Insitu Mobile GrollProenza Schouer Pigtail 6.7Fr catheter (R50914) was advanced over the wire and used for . 17:12:39 DEFLECTING TIP CRV 1 wire (V24551) opened to sterile field. 17:15:21 Versed 1 mg I.V. was administered by Alisa Ray RN; for sedation; Verbal order read back and verified. 17:15:31 Fentanyl 50 mcg I.V. was administered by Alisa Ray RN; for sedation ; Verbal order read back and verified. 17:23:38 Angiography was performed. 17:23:46 Procedure ended.(Physican Out) 17:27:43 Fluoroscopy time 08.50 minutes. 17:27:49 Fluoroscopy dose: 63 mGy 17:27:49 Flurop Dose total: 63 17:28:02 Contrast amount:Isovue 300 55ml. 17:28:05 Procedure and supply charges have been captured, reviewed, submitted an d are correct. 17:34:54 Vital chart was stopped Device Usage Item Name Manufacture Quantity Catalog Hospital Part Current [facility] l Lot# / Number Charge Number Stock Stock Serial# Code Tegaderm 4 x 3M 1 1626W [id number] [id number] [id number] 5 4 (1626W) Sterile Cardinal 1 [id number] 199041 916848 5 Angiographic Health Pack Bag Decanter Microtek 1 741222 92739 235696 5 () Medical Inc. ACIST Acist 1 10928 044012 056258 852674 5 Manifold Medical (24741) Systems Inc ACIST Hand Acist 1 87553 986102 531689 993898 5 Control Medical (06259) Systems Inc ACIST Syringe Acist 1 44062 819252 349715 510578 20 (10994) Medical Systems Inc TUBING Merit 1 [id number] 671546 341379 568928 5 Contrast Medical Injection High Pressure (PSE315H) Micropuncture VSI VASCULAR 1 7266V 938431 235705 5 VSI 4FR kit SOLUTIONS BENTSON 145cm [facility] 1 [id number] 085114 584037 5 wire (K14731) SHEATH 7FR Terumo 1 QFZ579 741142 729052 643010 5 Kyburz (PXS647) SHEATH 7FR Terumo 1 RSR04 715609 007824 706033 5 Destination (RSR04) Cook Grollman [facility] 1 H71416 902173 667275 5 Pigtail 6.7Fr catheter (E97935) DEFLECTING [facility] 1 T64084 708037 475356 5 TIP CRV 1 wire (H08146) Signature Audit [place] Stage Time Signature Unsigned Intra-Procedure 11/30/2019 Tamiko Mcnally 5:34:49 PM RT(R) [facility] [address] [place] [address]
--- NOTE | ~2019-11-22 | HEMODYNAMI ---
PATIENT:QUE SPENCE MEDICAL RECORD: [id number] : 57 LOCATION:D.MS [place]2 ADMISSION DATE: 11/22/19 Generatedon:11/23/201914:21 Patient name: QUE SPENCE Patient #: [id number] SSN: : 1955 Date of study: 11/23/2019 Page: Of Hemodynamic Procedure Report Patient Data Patient Demographics Procedure consent was obtained First Name: QUE Gender: Male Last Name: JORDY : 1955 Middle Initial: AYLA Age: 63 year(s) Patient #: [id number] Race: Black Additional ID: [id number] Contact details Address: [address] [place] [address] State: [place] City: [facility] Zip code: [address] Admission Admission Data Admission Date: 11/22/2019 Admission Time: 16:48 Room #: [id number] Procedure Procedure Types Cath Procedure Peripheral Cath Diagnostic Procedure Miscellaneous Procedure Description Procedure Date Procedure Date: 11/23/2019 Procedure Start Time: 13:39 Procedure Staff Name Karely Hoffman MD Performing Physician Gus Manning RT Monitor ODILON MEDINA RT Scrub Blue PAEZ RN Nurse Neri Casas Additional personnel Procedure Data Cath Procedure Fluoroscopy Diagnostic fluoroscopy Total fluoroscopy Time: time: 11.3 min 11.3 min Diagnostic fluoroscopy Total fluoroscopy dose: 225 dose: 225 mGy mGy Contrast Material Contrast Material Type Amount (ml) Isovue 300 60 Diagnostic catheters Device Type Used For End Catheter Placement Merit ULTRA BOLUS FLUSH 5Fr 90CM catheter ([id number]) Merit 5Fr Mikaless catheter (897687) Procedure Medications Medication Administration Route Dosage Lidocaine 1% added to field 20 Heparin Flush Bag added to field 2 bags (1000units/500ml NS) Heparin Flush Bag added to field 2 bags (1000units/500ml NS) Hemodynamics Rest Pre Cath Intra NCS Post Cath Medications Time Medication Route Dose Verified Delivered Reason Notes Effectiveness by by 13:17:16 Lidocaine 1% added 20ml Rashid Mike for local See to vial Hoffman Hoffman anesthetic Anesthesia field MD BACA Flowsheet for vital trends 13:17:25 Heparin Flush added 2 Rashid Mike used for Bag to bags Hoffman Hoffman procedure (1000units/500ml field MD BACA NS) 13:17:26 Heparin Flush added 2 Rashid Mike used for Bag to bags Hoffman Hoffman procedure (1000units/500ml field MD BACA NS) Procedure Log Time Note 12:43:04 Gus Manning RT (R) (CV) sent for patient. Start room use. 12:43:44 Neri Casas present and monitoring patient for TIVA. 12:43:54 Use device set IR Diagnostic 12:43:55 ACIST Syringe (66331) opened to sterile field. 12:43:56 ACIST Hand Control (28995) opened to sterile field. 12:43:56 ACIST Manifold (44796) opened to sterile field. 12:43:57 Bag Decanter (2002S) opened to sterile field. 12:43:57 Sterile Angiographic Pack opened to sterile field. 12:43:57 Tegaderm 4 x 4 (1626W) opened to sterile field. 12:44:02 Time tracking: Regular hours (M-F 7:00 - 5:00) 12:44:08 Plan of Care:Hemodynamics will remain stable., Cardiac rhythm will remain stable., Comfort level will be maintained., Respiratory function will remain adequate., Patient/ family verbilizes understanding of procedure., Procedure tolerated without complication., Recovers from procedure without complications.. 12:44:16 Patient received from Med/Surg to IR Alert and oriented. Tansferred to table in Supine position. 12:44:19 Signed procedure consent form obtained from patient. 12:44:25 Warm blankets applied, and tono hugger turned on for patient comfort. 12:44:26 Correct patient and procedure confirmed by team. 12:44:27 ECG and BP/O2 sat monitors applied to patient. 12:44:30 - 12:44:50 SEE ANESTHESIA NOTE FOR PRE PROCEDURE ANESTHESIA 12:44:51 - 12:49:05 Pre-procedure instructions explained to patient. 12:49:06 Pre-op teaching completed and patient verbalized understanding. 12:49:15 Sharps counted by scrub and verified by R.N. 12:49:15 Alarms reviewed by R. N. 12:49:19 Right groin area was prepped with chlora-prep and draped in sterile fashion 13:00:09 Pre procedure: right dorsailis pedis pulse 1+ Palpable, but thready & weak; easily obliterated 13:17:16 Lidocaine 1% 20ml vial added to field was administered by Rashid Hoffman MD; for local anesthetic; See Anesthesia Flowsheet for vital trends Verbal order read back and verified. 13:17:25 Heparin Flush Bag (1000units/500ml NS) 2 bags added to field was administered by Rashid Hoffman MD; used for procedure; Verbal order read back and verified. 13:17:26 Heparin Flush Bag (1000units/500ml NS) 2 bags added to field was administered by Rashid Hoffman MD; used for procedure; Verbal order read back and verified. 13:38:09 Physician arrived 13:38:09 --------ALL STOP TIME OUT------ 13:38:12 Final Timeout: patient, procedure, and site verified with staff and physician. All members of the team are in agreement. 13:38:15 Right groin site verified by team. 13:38:19 Fire Safety Assessment: A--An alcohol-based skin anteseptic being used preoperatively., C--Open oxygen or nitrous oxide is being used. 13:38:52 Sedation plan: General Anesthesia Medication:General Anesthesia 13:39:07 Procedure started. 13:39:08 Full Disclosure recording started 13:39:28 Local anesthetic to right femoral artery with Lidocaine 1% by Rashid Hoffman MD.INITIAL ACCESS ONLY 13:39:37 DOC .035 wire (D81473) opened to sterile field. 13:39:38 TUBING Contrast Injection High Pressure (JWK674I) opened to sterile field. 13:39:38 SHEATH 5FR [place] (NJQ754) opened to sterile field. 13:39:39 PERCUTANEOUS ENTRY 19GA needle opened to sterile field. 13:39:44 A Ethical Electric ULTRA BOLUS FLUSH 5Fr 90CM catheter ([id number]) was advanced over the wire and used for . 13:39:58 1) 90+ Normal kidney functon but urine findings or structural abnormalities or genetic trait point to kidney disease. 13:40:36 Maximum allowable contrast dose (3.7 X eGFR X 0.75)249 ml. 13:42:26 A Merit 5Fr Mikaless catheter (291492) was advanced over the wire and used for . 13:46:50 TRANSEND STEERABLE wire ([id number]) opened to sterile field. 13:46:50 RENEGADE HI-JUANA microcatheter ([id number]) opened to sterile field. 13:51:40 FATHOM 200cm wire ([id number]) opened to sterile field. 14:00:28 COIL Micronester 3mm (I36220) opened to sterile field. 14:02:26 COIL Micronester 3mm (L96501) opened to sterile field. 14:03:57 COIL Micronester 3mm (E43843) opened to sterile field. 14:05:32 COIL Micronester 3mm (C41014) opened to sterile field. 14:06:36 COIL Micronester 3mm (I76845) opened to sterile field. 14:08:03 COIL Micronester 3mm (B64382) opened to sterile field. 14:13:33 EXOSEAL 5Fr (EX500) opened to sterile field. 14:15:11 Procedure ended.(Physican Out) 14:18:23 Fluoroscopy time 11.30 minutes. 14:18:37 Fluoroscopy dose: 225 mGy 14:18:37 Flurop Dose total: 225 14:19:07 Contrast amount:Isovue 300 60ml. 14:19:11 Sharps counted by scrub and verified by R.N. 14:19:12 Insertion/operative site no bleeding no hematoma. 14:19:15 Post-op/insertion site Right Femoral artery dressed using a 4 x 4 and Tegaderm. 14:19:19 Post right femoral artery:stable 14:19:20 Post Procedure Pulses reassessed and unchanged 14:20:50 SEE ANESTHESIA NOTE FOR POST PROCEDURE ANESTHESIA 14:20:58 Patient transfered to Recovery Room with Bed. 14:21:07 Report given to Recovery Room. Device Usage Item Name Manufacture Quantity Catalog Number Hospital Part Current Nj nimal Lot# / Charge Number Stock Stock Serial# Code ACIST Syringe Acist 1 70907 571493 516397 328813 20 (66805) Medical Systems Inc ACIST Hand Acist 1 84988 349505 859290 476075 5 Control Medical (00149) Systems Inc ACIST Manifold Acist 1 92325 505860 626752 222490 5 (93113) Medical Systems Inc Bag Decanter Microtek 1 2001S 316625 18731 127467 5 (2002S) Medical Inc. Sterile Cardinal 1 [id number] 561722 214699 5 Angiographic Health Pack Tegaderm 4 x 4 3M 1 1626W 097362 822641 078713 5 (1626W) DOC .035 wire Cook Medical 1 R22284 567966 441713 5 (A47921) TUBING Merit 1 [id number] 673309 427560 055641 5 Contrast Medical Injection High Pressure (LLG478X) SHEATH 5FR Terumo 1 BSA618 491415 637803 231220 5 [place] (XYP941) PERCUTANEOUS Cook Medical 1 X25951 147690 675368 5 ENTRY 19GA needle Merit ULTRA Merit 1 [id number] 100661 285352 5 [id number] BOLUS FLUSH Medical 5Fr 90CM catheter ([id number]) Merit 5Fr Merit 1 893397 690822 030057 5 [facility] Medical catheter (872065) TRANSEND [place] 1 [id number] 101377 841792 5 [id number] STEERABLE wire Scientific ([id number]) RENEGADE [place] 1 [id number] 369946 142724 5 [id number] HI-JUANA Scientific microcatheter ([id number]) FATHOM 200cm [place] 1 [id number] 480773 244475 844219 5 wire Scientific ([id number]) COIL Cook Medical 6 J65605 556516 628718 1 [id number] Micronester [id number] 3mm (A82593) 7906122 5888927 0300387 1737115 EXOSEAL 5Fr Cardinal 1 EX500 395336 945725 324918 10 [id number] (EX500) Health Signature Audit [place] Stage Time Signature Unsigned Intra-Procedure 11/23/2019 Gus 2:21:28 PM [place] RT (R) (CV) [facility] [address] [id number]
[~2019-11-22 06:51] MED LIST changes: +MUCINEX DM ER1 EAC1 PO; +OMNICEF300 MG PO; +TESSALON PERLE100 MG PO
[2019-11-22 07:30] LABS: BASOPHILS 1.2 % (0-2); HEMATOCRIT 28.3 % (42.0-54.0); HEMOGLOBIN 9.5 g/dL (13.5-17.5); IMMATURE GRANULOCYTES 0.6 % (0-5); LYMPHOCYTES 11.9 % (15-50); MCH 31.4 pg (26.0-34.0); MCHC 33.6 g/dL (31.0-37.0); MCV 93.4 fL (80.0-100.0); MEAN PLATELET VOLUME 8.9 fL (7.4-10.4); MONOCYTES 12.5 % (2-11); NEUTROPHILS 72.8 % (40-80); PLATELET COUNT 523 10x3/uL (130-400); RBC 3.03 10x6/uL (4.20-6.10); RDW 13.2 % (11.5-14.5); WBC 13.9 10x3/uL (4.8-10.8)
[2019-11-22 08:34] LABS: INR 1.49 (0.85-1.17); PROTIME 17.9 SECONDS (11.6-15.0)
[2019-11-22 08:35] LABS: D-DIMER-QUANTITATIVE 1.26 ug/mLFEU (0.20-0.54)
[2019-11-22 08:39] LABS: CALC OSMOLALITY 264 mosm/kg (275-300); CARBON DIOXIDE 21.9 mmol/L (21.0-32.0); CHLORIDE - SERUM 100 mmol/L (98-107); GLUCOSE 128 mg/dL (74-106); POTASSIUM - SERUM 3.1 mmol/L (3.5-5.1); SODIUM 132 mmol/L (136-145); UREA NITROGEN 6 mg/dL (7-18); eGFR NON AFRICAN AMERICAN 80 mL/min (90-120)
[2019-11-22 08:46] LABS: ALBUMIN 2.2 g/dL (3.4-5.0); ALKALINE PHOSPHATASE 105 U/L (30-120); ALT (SGPT) 22 U/L (10-68); C-REACTIVE PROTEIN 5.8 mg/dL (0.0-0.9); PROTEIN - SERUM 9.1 g/dL (6.4-8.2)
[2019-11-23] VITALS (8 sets, daily range): BP systolic 83–115; BP diastolic 56–67; BMI 18.7
[2019-11-23 06:39] LABS: ALKALINE PHOSPHATASE 87 U/L (30-120); BILIRUBIN - TOTAL 0.65 mg/dL (0.2-1.3); CALC OSMOLALITY 260 mosm/kg (275-300); CALCIUM 7.5 mg/dL (8.5-10.1); CARBON DIOXIDE 22.9 mmol/L (21.0-32.0); CHLORIDE - SERUM 101 mmol/L (98-107); CREATININE - SERUM 0.8 mg/dL (0.6-1.3); GLUCOSE 84 mg/dL (74-106); MAGNESIUM - SERUM 1.5 mg/dL (1.8-2.4); PROTEIN - SERUM 7.8 g/dL (6.4-8.2); SODIUM 132 mmol/L (136-145); UREA NITROGEN 5 mg/dL (7-18); eGFR NON AFRICAN AMERICAN > 90 mL/min (90-120)
[2019-11-23 07:39] LABS: ALT (SGPT) 15 U/L (10-68)
[2019-11-23 07:42] LABS: POTASSIUM - SERUM 2.5 mmol/L (3.5-5.1)
--- NOTE | 2019-11-23 07:55 | NUR ---
HE IS ALERT, TALKING. HUNG THE FIRST BAG OF K+ (10 MCQ). THE CALL LIGHT IS WITHIN REACH.
[2019-11-23 09:55] LABS: BASOPHILS 1.1 % (0-2); EOSINOPHILS 1.5 % (0-7); HEMATOCRIT 26.3 % (42.0-54.0); HEMOGLOBIN 8.8 g/dL (13.5-17.5); IMMATURE GRANULOCYTES 0.4 % (0-5); LYMPHOCYTES 13.1 % (15-50); MCHC 33.5 g/dL (31.0-37.0); MCV 92.6 fL (80.0-100.0); MEAN PLATELET VOLUME 9.3 fL (7.4-10.4); MONOCYTES 13.8 % (2-11); NEUTROPHILS 70.1 % (40-80); PLATELET COUNT 442 10x3/uL (130-400); RBC 2.84 10x6/uL (4.20-6.10); WBC 10.5 10x3/uL (4.8-10.8)
--- NOTE | 2019-11-23 12:00 | NUR ---
BACK FROM THE BRONCH, HE IS COUGHING, ON ROOM AIR. SAT'S ARE FINE. VS STABLE. RESTARTED HIS K+ RIDER, Y'D INTO THE NS. HE IS ALERT, TALKING. THE CALL LIGHT IS WITHIN REACH.
--- NOTE | 2019-11-23 13:00 | NUR ---
PATIENT IS NOT IN HIS ROOM, GONE TO IR.
--- NOTE | 2019-11-23 15:43 | NUR ---
SPOKE WITH PATIENT'S BROTHER (KAVEH) AND GAVE HIM AN UPDATE ON THE BRONCHOSCOPY AND PULMONARY ARTERY EMBOLISM. QUESTIONS ASKED AND ANSWERED. NO CONSERNS OR COMPLAINTS IDENTIFIED.
[2019-11-24] VITALS: BP 92/68
[2019-11-24 04:00] VITALS: BP 105/66
[2019-11-24 06:12] LABS: BASOPHILS 0.2 % (0-2); EOSINOPHILS 0.1 % (0-7); HEMOGLOBIN 8.6 g/dL (13.5-17.5); IMMATURE GRANULOCYTES 0.5 % (0-5); LYMPHOCYTES 8.8 % (15-50); MCH 30.9 pg (26.0-34.0); MCHC 33.1 g/dL (31.0-37.0); MCV 93.5 fL (80.0-100.0); MEAN PLATELET VOLUME 9.6 fL (7.4-10.4); MONOCYTES 4.4 % (2-11); PLATELET COUNT 453 10x3/uL (130-400); RBC 2.78 10x6/uL (4.20-6.10); RDW 13.1 % (11.5-14.5)
[2019-11-24 06:13] LABS: WBC 15.3 10x3/uL (4.8-10.8)
--- NOTE | 2019-11-24 07:23 | NUR ---
RESTING IN BED WITH NO NEEDS AT THIS TIME
[2019-11-24 07:57] LABS: ALKALINE PHOSPHATASE 89 U/L (30-120); ALT (SGPT) 15 U/L (10-68); BILIRUBIN - TOTAL 0.47 mg/dL (0.2-1.3); CALCIUM 7.5 mg/dL (8.5-10.1); CARBON DIOXIDE 19.8 mmol/L (21.0-32.0); CHLORIDE - SERUM 104 mmol/L (98-107); CREATININE - SERUM 0.8 mg/dL (0.6-1.3); MAGNESIUM - SERUM 1.6 mg/dL (1.8-2.4); PROTEIN - SERUM 7.8 g/dL (6.4-8.2); SODIUM 134 mmol/L (136-145); UREA NITROGEN 4 mg/dL (7-18); eGFR NON AFRICAN AMERICAN > 90 mL/min (90-120)
[2019-11-24 08:00] LABS: CALC OSMOLALITY 266 mosm/kg (275-300); GLUCOSE 139 mg/dL (74-106); POTASSIUM - SERUM 3.8 mmol/L (3.5-5.1)
--- NOTE | 2019-11-24 08:06 | NUR ---
HE IS COUGHING UP BLOOD STILL. HE IS ASKING FOR STRONGER PAIN MEDICATIONS. THE RIGHT GROIN IS CLEAN AND DRY. THE CALL LIGHT IS WITHIN REACH.
[2019-11-24 09:55] VITALS: BP 100/62
[2019-11-24 13:46] VITALS: BP 119/69
[2019-11-24 14:10] LABS: FUNGUS STAIN Final report (())
--- NOTE | 2019-11-24 17:03 | NUR ---
called dr. evans's office about the consult. No one has returned my call at this time.
[2019-11-24 18:08] LABS: ACID FAST SMEAR Negative (()); AFB SPECIMEN PROCESSING Concentration (())
[2019-11-24 18:10] VITALS: BP 97/64
[2019-11-24 20:00] VITALS: BP 109/71
[2019-11-25] VITALS: BP 105/65
[2019-11-25 04:00] VITALS: BP 138/81
[2019-11-25 06:54] LABS: BASOPHILS 0.5 % (0-2); EOSINOPHILS 1.5 % (0-7); HEMATOCRIT 25.3 % (42.0-54.0); HEMOGLOBIN 8.5 g/dL (13.5-17.5); IMMATURE GRANULOCYTES 0.4 % (0-5); LYMPHOCYTES 17.2 % (15-50); MCH 31.5 pg (26.0-34.0); MCHC 33.6 g/dL (31.0-37.0); MCV 93.7 fL (80.0-100.0); MEAN PLATELET VOLUME 9.2 fL (7.4-10.4); MONOCYTES 10.4 % (2-11); PLATELET COUNT 385 10x3/uL (130-400); RDW 13.5 % (11.5-14.5)
[2019-11-25 06:55] LABS: WBC 9.4 10x3/uL (4.8-10.8)
[2019-11-25 07:11] LABS: ALBUMIN 1.8 g/dL (3.4-5.0); ALKALINE PHOSPHATASE 76 U/L (30-120); ALT (SGPT) 15 U/L (10-68); BILIRUBIN - TOTAL 0.51 mg/dL (0.2-1.3); CALCIUM 7.8 mg/dL (8.5-10.1); CHLORIDE - SERUM 106 mmol/L (98-107); CREATININE - SERUM 0.8 mg/dL (0.6-1.3); MAGNESIUM - SERUM 1.4 mg/dL (1.8-2.4); PROTEIN - SERUM 7.3 g/dL (6.4-8.2); SODIUM 137 mmol/L (136-145); UREA NITROGEN 3 mg/dL (7-18); eGFR NON AFRICAN AMERICAN > 90 mL/min (90-120)
[2019-11-25 07:12] LABS: CALC OSMOLALITY 269 mosm/kg (275-300); GLUCOSE 86 mg/dL (74-106); POTASSIUM - SERUM 3.2 mmol/L (3.5-5.1)
--- NOTE | 2019-11-25 07:54 | NUR ---
AWAKE AND ALERT. ORIENTED X3. NO C/O AT THIS TIME. LUNGS ARE CLEAR BUT DIMINISHED THROUGHOUT, PRODUCTIVE COUGH NOTED. WITH BRIGHT RED BLOOD ON OCCASSION. WILL MONITOR. IV TO RIGHT WRIST IS PATENT WITHOUT REDNESS AT INSERTION SITE. SKIN IS INTACT WITHOUT REDNESS. DENIES NEEDS.
[2019-11-25 09:12] VITALS: BP 106/66
[2019-11-25 09:15] LABS: % SATURATION 22 % (15-55); IRON 29 ug/dl (35-150); TOTAL IRON BIND CAPACITY 128 ug/dl (260-445); UNSAT IRON BIND CAPACITY 99 ug/dl (150-375)
--- NOTE | 2019-11-25 10:00 | NUR ---
ATE MOST OF BREAKFAST. TOOK AM MEDS WITHOUT DIFFICULTY. DENIES NEEDS.
--- NOTE | 2019-11-25 12:15 | NUR ---
DR. CAROLINA HERE. NEW ORDERS RECEIVED.
[2019-11-25 13:02] VITALS: BP 116/73
[2019-11-25 17:22] VITALS: BP 111/67
--- NOTE | 2019-11-25 18:52 | NUR ---
ATE ALL OF SUPPER. NO C/O AT THIS TIME. NO CHANGES NOTED.
[2019-11-25 20:00] VITALS: BP 89/59
[2019-11-26] VITALS: BP 137/62
--- NOTE | 2019-11-26 02:57 | NUR ---
ASSESSED AT THE BEGINNING OF THE SHIFT. PT IS ALERT AND ORIENTED, ABLE TO VERBALIZE NEEDS. HE REMAINS ON DROPLET ISOLATION AND HAS TELEMETRY IN PLACE SHOWING SR 80. MEDS WERE TAKEN AND PAIN MED WAS ASKED FOR AND GIVEN HE HAS BEEN ASLEEP SINCE ABOUT 2300..
[2019-11-26 04:00] VITALS: BP 111/69
[2019-11-26 06:48] LABS: BASOPHILS 0.7 % (0-2); HEMATOCRIT 25.9 % (42.0-54.0); HEMOGLOBIN 8.7 g/dL (13.5-17.5); IMMATURE GRANULOCYTES 0.3 % (0-5); LYMPHOCYTES 14.3 % (15-50); MCH 31.4 pg (26.0-34.0); MCHC 33.6 g/dL (31.0-37.0); MCV 93.5 fL (80.0-100.0); MEAN PLATELET VOLUME 9.4 fL (7.4-10.4); MONOCYTES 14.9 % (2-11); NEUTROPHILS 67.8 % (40-80); PLATELET COUNT 373 10x3/uL (130-400); RBC 2.77 10x6/uL (4.20-6.10); RDW 13.8 % (11.5-14.5); WBC 9.8 10x3/uL (4.8-10.8)
[2019-11-26 07:04] LABS: ALBUMIN 1.9 g/dL (3.4-5.0); ALKALINE PHOSPHATASE 78 U/L (30-120); ALT (SGPT) 16 U/L (10-68); BILIRUBIN - TOTAL 0.52 mg/dL (0.2-1.3); CALC OSMOLALITY 269 mosm/kg (275-300); CALCIUM 7.9 mg/dL (8.5-10.1); CARBON DIOXIDE 25.2 mmol/L (21.0-32.0); CHLORIDE - SERUM 103 mmol/L (98-107); CREATININE - SERUM 0.7 mg/dL (0.6-1.3); GLUCOSE 89 mg/dL (74-106); MAGNESIUM - SERUM 1.3 mg/dL (1.8-2.4); POTASSIUM - SERUM 3.3 mmol/L (3.5-5.1); PROTEIN - SERUM 7.3 g/dL (6.4-8.2); SODIUM 137 mmol/L (136-145); UREA NITROGEN 4 mg/dL (7-18); eGFR NON AFRICAN AMERICAN > 90 mL/min (90-120)
--- NOTE | 2019-11-26 07:45 | NUR ---
PT SITTING UP IN BED A&O X4. C/O 11/07 PAIN, PROVIDED MEDS PER ORDER. PIV IN RIGHT WRIST, PATENT, NO REDNESS OR SWELLING. PT C/O BLOODY SPUTUM, ASKED PT TO KEEP SPUTUM IN CUP. PT ON TELEMETRY, 92 SR BUNDLE BRANCH BLOCK. PT ABLE TO AMBULATE WITHOUT ASSIST. PT IN DROPLET AND CONTACT ISOLATION PRECAUTIONS. EDUCATED PT ON CL AND NEEDS, VERBALIZED UNDERSTANDING. BED LOW, RAILS X2. WILL CONTINUE TO MONITOR.
[2019-11-26 09:04] VITALS: BP 120/77
[2019-11-26 13:26] VITALS: BP 103/71
--- NOTE | 2019-11-26 13:41 | NUR ---
NUTRITION FOLLOW UP: COMMENTS: Patient has been eating okay since admit. No weight changes during admit. . DIET: Regular Diet PO INTAKE: 60% avg for last 10 meals WEIGHT: 11/11- 146 lbs, 11/22- 146 lbs BM: None recorded at this time SIG LABS: K-3.3(L), BUN-4(L), Ca-7.9(L), Albumin-1.9(L) SIG MEDS: KCl, Mag Ox, Protonix RECOMMENDATIONS: -Continue Regular Diet as tolerated -Offer nutritional supplements if po intake becomes < 50% avg for meals -Encourage PO intake RD to continue to monitor and follow patients DHS
[2019-11-26 20:00] VITALS: BP 108/67
[2019-11-27 06:16] LABS: BASOPHILS 0.7 % (0-2); HEMATOCRIT 25.1 % (42.0-54.0); HEMOGLOBIN 8.3 g/dL (13.5-17.5); IMMATURE GRANULOCYTES 0.7 % (0-5); LYMPHOCYTES 16.7 % (15-50); MCHC 33.1 g/dL (31.0-37.0); MCV 93.7 fL (80.0-100.0); MEAN PLATELET VOLUME 9.7 fL (7.4-10.4); NEUTROPHILS 65.9 % (40-80); PLATELET COUNT 368 10x3/uL (130-400); RBC 2.68 10x6/uL (4.20-6.10); RDW 13.8 % (11.5-14.5); WBC 10.7 10x3/uL (4.8-10.8)
[2019-11-27 06:48] LABS: ALBUMIN 1.8 g/dL (3.4-5.0); ALKALINE PHOSPHATASE 73 U/L (30-120); ALT (SGPT) 13 U/L (10-68); BILIRUBIN - TOTAL 0.48 mg/dL (0.2-1.3); CALC OSMOLALITY 262 mosm/kg (275-300); CALCIUM 7.9 mg/dL (8.5-10.1); CARBON DIOXIDE 23.4 mmol/L (21.0-32.0); CHLORIDE - SERUM 101 mmol/L (98-107); CREATININE - SERUM 0.7 mg/dL (0.6-1.3); GLUCOSE 79 mg/dL (74-106); MAGNESIUM - SERUM 1.4 mg/dL (1.8-2.4); POTASSIUM - SERUM 3.7 mmol/L (3.5-5.1); PROTEIN - SERUM 7.3 g/dL (6.4-8.2); SODIUM 133 mmol/L (136-145); eGFR NON AFRICAN AMERICAN > 90 mL/min (90-120)
[2019-11-27 06:51] LABS: UREA NITROGEN 6 mg/dL (7-18)
[2019-11-27 08:00] VITALS: BP 108/64
[2019-11-27 12:41] VITALS: Ht 188 cm; Wt 66.2 kg
[2019-11-27 13:26] VITALS: BP 99/55
--- NOTE | 2019-11-27 14:23 | NUR ---
I have reviewed this patient and I concur with the Shift Assessment completed by the Licensed Practical Nurse today this shift.
[2019-11-27 16:00] VITALS: BP 94/56
--- NOTE | 2019-11-27 19:00 | NUR ---
ALERT AND ORIENTED RESTING IN BED WITH NO DISTRESS. DENIES NEEDS AT THIS TIME. CALL LIGHT CLOSE. CPOC.
[2019-11-27 20:00] VITALS: BP 85/55
--- NOTE | 2019-11-27 20:45 | NUR ---
ANSWERED PATIENT CALL LIGHT. PATIENT STATES HE PULLED THE TAPE OFF HIS ARM BECAUSE IT WAS BOTHERING HIM, UPON ASSESSMENT, PATIENT PULLED OUT 22G IV FROM RIGHT WRIST. CATH IN TACT. ATTEMPTED TO RESITE IV AT THIS TIME. PATIENT DENIES, ASKS TO RESTART IN AM. DENIES FURTHER NEEDS AT THIS TIME. CALL LIGHT CLOSE. CPOC.
--- NOTE | 2019-11-27 23:00 | NUR ---
PATIENT AWAKE WATCHING TV. PROVIDED NPO EDUCATION TO PATIENT IN REGARDS TO POSSIBLE BRONCH PER MDS NOTES. PATIENT IRRITATED WHEN REMOVING LIQUIDS FROM BED SIDE TABLE. DENIES FURTHER NEEDS. CPOC.
[2019-11-28] VITALS: BP 83/53
--- NOTE | 2019-11-28 03:35 | NUR ---
ANSWERED PATIENT CALL LIGHT. PATIENT IRRITATED OVER NOT BEING ABLE TO DRINK ANYTHING. PATIENT STATES THAT THE DOCTOR DISCUSSED WITH HIM FRIDAY THAT BRONCH WOULD BE FRIDAY OR FRIDAY. PATIENT STATES HE "DOUBTS" HE WILL APPROVE OF ANY PROCEDURE TODAY (FRIDAY). ASKED PATIENT IF HE IS OKAY WITH RESITING HIS IV AT THIS TIME, PATIENT DENIED. STATES HE WILL WAIT UNTIL CLOSER TO 7. CPOC.
[2019-11-28 04:00] VITALS: BP 88/52
--- NOTE | 2019-11-28 06:11 | NUR ---
RESITED 20 G IV TO THE RIGHT FOREARM. X1 ATTEMPT.
[2019-11-28 07:05] LABS: BASOPHILS 0.4 % (0-2); HEMATOCRIT 24.8 % (42.0-54.0); HEMOGLOBIN 8.3 g/dL (13.5-17.5); IMMATURE GRANULOCYTES 0.4 % (0-5); LYMPHOCYTES 10.4 % (15-50); MCHC 33.5 g/dL (31.0-37.0); MCV 92.5 fL (80.0-100.0); MEAN PLATELET VOLUME 9.4 fL (7.4-10.4); MONOCYTES 11.1 % (2-11); NEUTROPHILS 76.7 % (40-80); PLATELET COUNT 384 10x3/uL (130-400); RBC 2.68 10x6/uL (4.20-6.10); RDW 13.7 % (11.5-14.5); WBC 12.5 10x3/uL (4.8-10.8)
[2019-11-28 07:56] LABS: ALKALINE PHOSPHATASE 78 U/L (30-120); ALT (SGPT) 13 U/L (10-68); CALC OSMOLALITY 259 mosm/kg (275-300); CALCIUM 7.9 mg/dL (8.5-10.1); CARBON DIOXIDE 21.3 mmol/L (21.0-32.0); CHLORIDE - SERUM 99 mmol/L (98-107); GLUCOSE 91 mg/dL (74-106); MAGNESIUM - SERUM 1.4 mg/dL (1.8-2.4); POTASSIUM - SERUM 3.5 mmol/L (3.5-5.1); PROTEIN - SERUM 7.7 g/dL (6.4-8.2); SODIUM 131 mmol/L (136-145); UREA NITROGEN 5 mg/dL (7-18)
[2019-11-28 07:57] LABS: CREATININE - SERUM 0.9 mg/dL (0.6-1.3); eGFR NON AFRICAN AMERICAN > 90 mL/min (90-120)
--- NOTE | 2019-11-28 08:19 | NUR ---
CA[facility] CALLED THIS AM AND ASK IF PT WAS NPO, STREET AND BUILDING DECORATOR STATES THAT PT WAS DRINKING AT 6 THIS AM INSPITE OF ORDER FOR NPO, PREPARED CONSENT AND PT REFUSED TO SIGN, STATES "HE TOLD ME WE WOULD DO IT MON OR FRI, NOT TODAY, SEE TO IT THAT I GET BREAKFAST", INFORMED PT THAT I WAS NOT ABLE TO GET HIM BREAKFAST WITHOUT DR CAROLINA FIRST BEING NOTIFIED, CALL PLACED TO PAGE DR CAROLINA
[2019-11-28 09:53] VITALS: BP 90/60
--- NOTE | 2019-11-28 12:23 | NUR ---
TAKEN TO XRAY PER W/C
[2019-11-28 12:45] VITALS: BP 89/56
[2019-11-28 16:37] VITALS: BP 85/53
--- NOTE | 2019-11-28 19:30 | NUR ---
PATIENT ALERT AND ORIENTED WHEN ENTERING THE ROOM. PATIENT REQUESTS PAIN MEDICATION FOR PAIN RATING OF 8/10 "ALL OVER". NO IV AT THIS TIME. REQUESTS TO WAIT UNTIL THE MORNING. DENIES FURTHER NEEDS AT THIS TIME. CALL LIGHT CLOSE. CPOC.
[2019-11-28 23:03] VITALS: BP 82/46
--- NOTE | 2019-11-29 01:27 | NUR ---
RESTING WITH NO SIGNS OR SYMPTOMS OF DISTRESS AT THIS TIME. RESPIRATIONS ARE EVEN AND UNLABORED. PATIENT CALL LIGHT CLOSE TO HIM. BED IN LOWEST POSITION. SIDE RAILS UP X2. CPOC.
[2019-11-29 02:35] VITALS: BP 85/55
--- NOTE | 2019-11-29 04:47 | NUR ---
22G IV RESITED TO THE LEFT FOREARM. X 1 ATTEMPT.
[2019-11-29 05:27] LABS: ALBUMIN 1.8 g/dL (3.4-5.0); ALKALINE PHOSPHATASE 75 U/L (30-120); ALT (SGPT) 16 U/L (10-68); BILIRUBIN - TOTAL 0.42 mg/dL (0.2-1.3); CALC OSMOLALITY 262 mosm/kg (275-300); CALCIUM 7.7 mg/dL (8.5-10.1); CARBON DIOXIDE 24.7 mmol/L (21.0-32.0); CHLORIDE - SERUM 101 mmol/L (98-107); CREATININE - SERUM 0.8 mg/dL (0.6-1.3); GLUCOSE 78 mg/dL (74-106); MAGNESIUM - SERUM 1.5 mg/dL (1.8-2.4); POTASSIUM - SERUM 3.2 mmol/L (3.5-5.1); PROTEIN - SERUM 7.4 g/dL (6.4-8.2); SODIUM 133 mmol/L (136-145); UREA NITROGEN 6 mg/dL (7-18); eGFR NON AFRICAN AMERICAN > 90 mL/min (90-120)
[2019-11-29 07:13] VITALS: BP 90/54
[2019-11-29 09:31] VITALS: BP 92/58
[2019-11-29 10:23] LABS: HEMOGLOBIN 8.1 g/dL (13.5-17.5); IMMATURE GRANULOCYTES 0.4 % (0-5); LYMPHOCYTES 17.7 % (15-50); MCH 31.3 pg (26.0-34.0); MCHC 33.8 g/dL (31.0-37.0); MCV 92.7 fL (80.0-100.0); MONOCYTES 13.9 % (2-11); PLATELET COUNT 354 10x3/uL (130-400); RBC 2.59 10x6/uL (4.20-6.10); RDW 13.4 % (11.5-14.5)
[2019-11-29 10:26] LABS: WBC 8.2 10x3/uL (4.8-10.8)
[2019-11-29 12:34] VITALS: BP 90/57
--- NOTE | 2019-11-29 13:30 | NUR ---
ENTERED PT ROOM TO OBTAIN CONSENT FOR PROCEDURE THIS AFTERNOON. PT INITIALLY AGREED TO PROCEDURE, HE TOOK CONSENT TO SIGN, THEN HANDED PAPER BACK TO STAFF AND STATED, "NO IM NOT DOING THIS TODAY, ILL DO IT TOMORROW." ASKED PT IF HE WAS NOT WILLING TO DO PROCEDURE TODAY. PT STATES "TELL THEM I AM REFUSING. I WILL DO IT TOMORROW!" CONTACTED JOSÉ WITH IR TO INFORM OF PT DECISION.
[2019-11-29 17:59] VITALS: BP 99/61
--- NOTE | 2019-11-29 19:00 | NUR ---
PATIENT ALERT AND ORIENTED WHEN ENTERING THE ROOM. SPOKE WITH PATIENT ABOUT BRONCH SCHEDULED FOR TOMORROW. PATIENT ASKED TO LOOK AT CONSENTS AND REVIEW THEM FOR A WHILE BUT NOT SIGN AT THIS TIME. PROVIDED PATIENT WITH CONSENTS. PATIENT HAS SMALL CUP AT BEDSIDE WITH MODERATE AMOUNT OF BLOODY SPUTUM NOTED. PATIENT DENIES NEEDS AT THIS TIME. REQUESTS TIME TO LOOK THROUGH CONSENTS. CALL LIGHT CLOSE. CPOC.
[2019-11-29 20:00] VITALS: BP 99/57
[2019-11-30] VITALS (7 sets, daily range): BP systolic 96–110; BP diastolic 57–70
--- NOTE | 2019-11-30 02:41 | NUR ---
PATIENT SIGNED CONSENTS. SIGNED REFUSAL FOR BLOOD PRODUCTS. ALL ARE ON CHART. HIBBA CLEANSE PERFORMED. NPO STATUS REVIEWED WITH PATIENT. PATIENT VERBALIZES UNDERSTANDING.
[2019-11-30 07:35] LABS: ALBUMIN 1.9 g/dL (3.4-5.0); ALKALINE PHOSPHATASE 76 U/L (30-120); ALT (SGPT) 13 U/L (10-68); BILIRUBIN - TOTAL 0.45 mg/dL (0.2-1.3); CALC OSMOLALITY 255 mosm/kg (275-300); CALCIUM 8.1 mg/dL (8.5-10.1); CARBON DIOXIDE 22.8 mmol/L (21.0-32.0); CHLORIDE - SERUM 100 mmol/L (98-107); CREATININE - SERUM 0.8 mg/dL (0.6-1.3); GLUCOSE 90 mg/dL (74-106); MAGNESIUM - SERUM 1.4 mg/dL (1.8-2.4); POTASSIUM - SERUM 3.8 mmol/L (3.5-5.1); PROTEIN - SERUM 7.6 g/dL (6.4-8.2); SODIUM 129 mmol/L (136-145); eGFR NON AFRICAN AMERICAN > 90 mL/min (90-120)
[2019-11-30 07:39] LABS: UREA NITROGEN 4 mg/dL (7-18)
--- NOTE | 2019-11-30 07:47 | NUR ---
PT RESTING QUIETLY IN BED, RESP EVEN AND UNLABORED. PRODUCTIVE COUGH NOTED AT THIS TIME, SPUTUM BLOOD TINGED AND AT TIMES SMALL DARK CLOTS COUGHED UP. SALINE LOC TO LEFT FOREARM, SITE WITHOUT REDNESS OR EDEMA. REPORTS PAIN 3/10 AT THIS TIME. DENIES FURTHER NEEDS AT THIS TIME. CL WITHIN REACH. ENCOURAGED TO CALL WITH NEEDS. CONTINUE POC
[2019-11-30 08:13] LABS: FUNGUS MYCOLOGY CULTURE Final report (())
[2019-11-30 10:11] LABS: APTT 39.3 SECONDS (22.8-39.4); INR 1.45 (0.85-1.17); PROTIME 17.5 SECONDS (11.6-15.0)
--- NOTE | 2019-11-30 12:08 | MORECARE ---
CASE MANAGEMENT DISCHARGE SUMMARY PATIENT: QUE SPENCE AYLA UNIT: [id number] ADM DATE: 11/22/19 AGE: 63 : 57 SEX: M ROOM/BED: D.2202 AUTHOR: DAVID ROCHA PHYSICIAN: REFERRING PHYSICIAN: LAYLA HENDERSON DO DATE OF SERVICE: 11/30/19 Discharge Plan Patient Name: QUE SPENCE [facility] [facility] 1955 Planned Disposition: Home Anticipated Discharge Date: Discharge Date: Expected LOS: Initial Reviewer: [email or web address] Initial Review Date: 11/22/2019 Generated: 11/30/19 1:08 pm Patient Name: QUE SPENCE Page [id number] at 1208 All edits/amendments must be made on the electronic document DICTATION DATE: 11/30/19 1208 CLINICAL ASSOC: PHU 11/30/19 1208 RPT#: [id number] DC DATE: STATUS: ADM IN [facility] [address] [place] [address] END OF REPORT
--- NOTE | 2019-11-30 12:15 | MORECARE ---
CASE MANAGEMENT DISCHARGE SUMMARY PATIENT: QUE SPENCE UNIT: [id number] ADM DATE: 11/22/19 AGE: 63 : 57 SEX: M ROOM/BED: D.2202 AUTHOR: DAVID ROCHA PHYSICIAN: REFERRING PHYSICIAN: LAYLA HENDERSON DO DATE OF SERVICE: 11/30/19 Discharge Plan Patient Name: QUE SPENCE [facility] [facility] 1955 Planned Disposition: Home Anticipated Discharge Date: Discharge Date: Expected LOS: Initial Reviewer: [email or web address] Initial Review Date: 11/22/2019 Generated: 11/30/19 1:15 pm DCPIA - Discharge Planning Initial Assessment Updated by [email or web address]: Rochelle Metz on 11/30/19 12:09 pm * Is the patient Alert and Oriented? Yes * How many steps to enter\exit or inside your home? * PCP [place] * Pharmacy [facility] IN [place] THEY CALL THE PHARMACY IN [place] AND THEN THE BROTHER MAILS THEM TO HIM * Preadmission Environment Home Alone * ADLs Independent * Equipment Cane * List name and contact numbers for known caregivers / representatives who currently or will assist patient after discharge: KAVEH SPENCE [phone] * Verbal permission to speak to the caregivers and representatives has been obtained from the patient. N/A * Community resources currently utilized None * Additional services required to return to the preadmission environment? No * Can the patient safely return to the preadmission environment? Yes * Has this patient been hospitalized within the prior 30 days at any hospital? Yes Last DP export: 11/30/19 11:08 am Patient Name: QUE SPENCE Page 82223 at 1215 All edits/amendments must be made on the electronic document DICTATION DATE: 11/30/19 1215 BACTERIOLOGIST INDUSTRIAL: PHU 11/30/19 1215 RPT#: [id number] DC DATE: STATUS: ADM IN [facility] [address] [place] [address] END OF REPORT
--- NOTE | 2019-11-30 12:23 | MORECARE ---
CASE MANAGEMENT DISCHARGE SUMMARY PATIENT: QUE SPENCE UNIT: [id number] ADM DATE: 11/22/19 AGE: 63 : 57 SEX: M ROOM/BED: D.2202 AUTHOR: DAVID ROCHA PHYSICIAN: REFERRING PHYSICIAN: LAYLA HENDRESON DO DATE OF SERVICE: 11/30/19 Discharge Plan Patient Name: QUE SPENCE Facility[facility]:[place] : 1955 Planned Disposition: Home Anticipated Discharge Date: Discharge Date: Expected LOS: Initial Reviewer: [email or web address] Initial Review Date: 11/22/2019 Generated: 11/30/19 1:23 pm Comments DCP- Discharge Planning Updated by [email or web address]: Rochelle Metz on 11/30/19 11:[address] Patient Name: QUE SPENCE Admission Status: ER Accout number: [id number] Admission Date: 11-22-2019 : 1955 Admission Diagnosis:HEMOPTYSIS Attending: LAYLA HENDERSON Current LOS: 8 Anticipated DC Date: Planned Disposition: Home Primary Insurance: UNINSURED DISCOUNT PLAN Discharge Planning Comments: CM met with patient to complete initial dc planning assessment. CM educated patient on the CM role and verbal consent given by patient to complete assessment. Patient lives at home in [place] where he is independent with his care. At discharge patient plans to return home and feels this is a safe discharge. CM discussed availability of home health, rehab services, and medical equipment. He has a cane at home. He stated that his PCP is in [place], He has [place] insurance and stated that he gets his medications filled. He has the [facility] in call the pharmacy in [place] to have it filled and then his brother will mail it to him. We talked about switching to [place] and he said that when he gets a bill he mails it to [facility] in [place]. He plans on taking a taxi home. Patient denied known discharge needs at this time. CM will continue to follow and will assist as needed with dc plans/needs. Nocturnist Physician: Rochelle Metz DCPIA - Discharge Planning Initial Assessment Updated by [email or web address]: Rochelle Metz on 11/30/19 12:09 pm * Is the patient Alert and Oriented? Yes * How many steps to enter\exit or inside your home? * PCP [place] * Pharmacy [facility] IN [place] THEY CALL THE PHARMACY IN [place] AND THEN THE BROTHER MAILS THEM TO HIM * Preadmission Environment Home Alone * ADLs Independent * Equipment Cane * List name and contact numbers for known caregivers / representatives who currently or will assist patient after discharge: KAVEH SPENCE [phone] * Verbal permission to speak to the caregivers and representatives has been obtained from the patient. N/A * Community resources currently utilized None * Additional services required to return to the preadmission environment? No * Can the patient safely return to the preadmission environment? Yes * Has this patient been hospitalized within the prior 30 days at any hospital? Yes Last DP export: 11/30/19 11:15 am Patient Name: QUE SPENCE Page [id number] at 1223 All edits/amendments must be made on the electronic document DICTATION DATE: 11/30/19 1223 DRAFTING LAYOUT WORKER: PHU 11/30/19 1223 RPT#: [id number] DC DATE: STATUS: ADM IN [facility] [address] [place] [address] END OF REPORT
--- NOTE | 2019-11-30 20:00 | NUR ---
PT LYING IN BED WITHOUT DISTRESS, AOX4. IV LEFT HAND SL. FLUSHES EASILY. PRODUCTIVE COUGH WITH BLOOD TINGED SPUTUM. PT UPSET STATING HE IS HUNGRY AND WAS NOT GIVEN DINNER. PROVIDED SANDWICH TRAY AND [place]. DENIES OTHER NEEDS AT THIS TIME. CL IN REACH, WILL CTM
--- NOTE | 2019-11-30 23:30 | NUR ---
PT LYING IN BED SLEEPING WITHOUT DISTRESS, WILL CTM
[2019-12-01] VITALS: BP 101/56
[2019-12-01 04:00] VITALS: BP 93/62
[2019-12-01 05:50] LABS: ALBUMIN 2.2 g/dL (3.4-5.0); ALKALINE PHOSPHATASE 90 U/L (30-120); ALT (SGPT) 14 U/L (10-68); BILIRUBIN - TOTAL 0.42 mg/dL (0.2-1.3); CALC OSMOLALITY 264 mosm/kg (275-300); CALCIUM 8.3 mg/dL (8.5-10.1); CHLORIDE - SERUM 100 mmol/L (98-107); GLUCOSE 130 mg/dL (74-106); MAGNESIUM - SERUM 1.7 mg/dL (1.8-2.4); POTASSIUM - SERUM 3.3 mmol/L (3.5-5.1); PROTEIN - SERUM 8.5 g/dL (6.4-8.2); SODIUM 133 mmol/L (136-145); UREA NITROGEN 4 mg/dL (7-18); eGFR NON AFRICAN AMERICAN 80 mL/min (90-120)
[2019-12-01 06:39] LABS: HEMATOCRIT 26.1 % (42.0-54.0); HEMOGLOBIN 8.4 g/dL (13.5-17.5); IMMATURE GRANULOCYTES 0.6 % (0-5); LYMPHOCYTES 19.8 % (15-50); MCH 30.1 pg (26.0-34.0); MCHC 32.2 g/dL (31.0-37.0); MCV 93.5 fL (80.0-100.0); MEAN PLATELET VOLUME 9.2 fL (7.4-10.4); MONOCYTES 11.6 % (2-11); PLATELET COUNT 479 10x3/uL (130-400); RBC 2.79 10x6/uL (4.20-6.10); RDW 13.9 % (11.5-14.5); WBC 7.9 10x3/uL (4.8-10.8)
--- NOTE | 2019-12-01 07:55 | NUR ---
RESTING IN BED, NO DISTRESS NOTED, EYES CLOSED, SL TO [facility], TELE IN PLACE, MONITOR ELECTROLYTES
[2019-12-01 09:58] VITALS: BP 98/60
[2019-12-01 12:47] VITALS: BP 96/56
--- NOTE | 2019-12-01 16:38 | MORECARE ---
CASE MANAGEMENT DISCHARGE SUMMARY PATIENT: QUE SPENCE UNIT: [id number] ADM DATE: 11/22/19 AGE: 63 : 57 SEX: M ROOM/BED: D.2202 AUTHOR: DAVID ROCHA PHYSICIAN: REFERRING PHYSICIAN: LAYLA HENDERSON DO DATE OF SERVICE: 12/01/19 Discharge Plan Patient Name: QUE SPENCE Facility: [facility]:[place] : 1955 Planned Disposition: Home Anticipated Discharge Date: Discharge Date: Expected LOS: Initial Reviewer: [email or web address] Initial Review Date: 11/22/2019 Generated: 12/01/19 5:37 pm Comments DCP- Discharge Planning Updated by [email or web address]: Elda Douglas on 12/01/19 3:[address] Patient Name: QUE SPENCE Admission Status: ER Accout number: [id number] Admission Date: 11-22-2019 : 1955 Admission Diagnosis:HEMOPTYSIS Attending: LAYLA HENDERSON Current LOS: 9 Anticipated DC Date: Planned Disposition: Home Primary Insurance: UNINSURED DISCOUNT PLAN Discharge Planning Comments: CM SPOKE WITH [facility] AT [phone] ABOUT NEED FOR TRANSFER FOR HIGH LEVEL OF CARE. PATIENT WILL NEED FACILITY WITH THORACIC SURGEON WITH TB PATIENT. DR. HEARN PHONE NUMBER GIVEN TO THEM FOR DOC TO DOC AND UNIT PHONE NUMBER GIVEN FOR NURSE. [facility] HAS NOT AGREED TO ACCEPT YET, I HAVE STARTED THE PROCESS AND WE ARE WAITING CALL BACK FROM THEIR NURSE. Boat Joiner: Elda Douglas DCP- Discharge Planning Updated by [email or web address]: Rochelle Metz on 11/30/19 11:[address] Patient Name: QUE SPENCE Admission Status: ER Accout number: [id number] Admission Date: 11-22-2019 : 1955 Admission Diagnosis:HEMOPTYSIS Attending: LAYLA HENDERSON Current LOS: 8 Anticipated DC Date: Planned Disposition: Home Primary Insurance: UNINSURED DISCOUNT PLAN Discharge Planning Comments: CM met with patient to complete initial dc planning assessment. CM educated patient on the CM role and verbal consent given by patient to complete assessment. Patient lives at home in [place] where he is independent with his care. At discharge patient plans to return home and feels this is a safe discharge. CM discussed availability of home health, rehab services, and medical equipment. He has a cane at home. He stated that his PCP is in [place], He has [place] insurance and stated that he gets his medications filled. [facility] the pharmacy [facility] [place] to have it filled and then his brother will mail it to him. We talked about switching to [place] Insurance and he said that when he gets a bill he mails it to [facility] in [place]. He plans on taking a taxi home. Patient denied known discharge needs at this time. CM will continue to follow and will assist as needed with dc plans/needs. Boat Joiner: Rochelle Metz DCPIA - Discharge Planning Initial Assessment Updated by [email or web address]: Rochelle Metz on 11/30/19 12:09 pm * Is the patient Alert and Oriented? Yes * How many steps to enter\exit or inside your home? * PCP [place] * Pharmacy [facility] IN [place] THEY CALL THE PHARMACY IN [place] AND THEN THE BROTHER MAILS THEM TO HIM * Preadmission Environment Home Alone * ADLs Independent * Equipment Cane * List name and contact numbers for known caregivers / representatives who currently or will assist patient after discharge: KAVEH SPENCE [phone] * Verbal permission to speak to the caregivers and representatives has been obtained from the patient. N/A * Community resources currently utilized None * Additional services required to return to the preadmission environment? No * Can the patient safely return to the preadmission environment? Yes * Has this patient been hospitalized within the prior 30 days at any hospital? Yes Last DP export: 11/30/19 11:24 am Patient Name: QUE SPENCE Page 14092 at 1638 All edits/amendments must be made on the electronic document DICTATION DATE: 12/01/191637 BULL FIDDLE PLAYER: PHU 12/01/191637 RPT#: [id number] DC DATE: STATUS: ADM IN [facility] [address] [place] [address] END OF REPORT
[2019-12-01 18:06] VITALS: BP 91/60
[2019-12-01 20:00] VITALS: BP 126/68
--- NOTE | 2019-12-01 20:00 | NUR ---
PT SITTING UP IN BED WITHOUT DISTRESS, AOX4. IV LEFT FA SL. DENIES PAIN OR NEEDS AT THIS TIME. CL IN REACH, WILL CTM
[2019-12-02] VITALS (9 sets, daily range): BP systolic 95–127; BP diastolic 54–80
--- NOTE | 2019-12-02 00:17 | NUR ---
PT LYING IN BED SLEEPING, WILL CTM
[2019-12-02 05:10] LABS: ALBUMIN 2.1 g/dL (3.4-5.0); ALKALINE PHOSPHATASE 84 U/L (30-120); CALC OSMOLALITY 259 mosm/kg (275-300); CALCIUM 7.8 mg/dL (8.5-10.1); CHLORIDE - SERUM 101 mmol/L (98-107); CREATININE - SERUM 0.8 mg/dL (0.6-1.3); GLUCOSE 93 mg/dL (74-106); MAGNESIUM - SERUM 1.6 mg/dL (1.8-2.4); PROTEIN - SERUM 7.9 g/dL (6.4-8.2); SODIUM 131 mmol/L (136-145); UREA NITROGEN 3 mg/dL (7-18); eGFR NON AFRICAN AMERICAN > 90 mL/min (90-120)
[2019-12-02 05:16] LABS: ALT (SGPT) 10 U/L (10-68); HEMATOCRIT 23.9 % (42.0-54.0); HEMOGLOBIN 7.9 g/dL (13.5-17.5); LYMPHOCYTES 15.7 % (15-50); MCH 31.3 pg (26.0-34.0); MCHC 33.1 g/dL (31.0-37.0); MCV 94.8 fL (80.0-100.0); MEAN PLATELET VOLUME 8.9 fL (7.4-10.4); NEUTROPHILS 64.7 % (40-80); PLATELET COUNT 425 10x3/uL (130-400); POTASSIUM - SERUM 3.8 mmol/L (3.5-5.1); RBC 2.52 10x6/uL (4.20-6.10); RDW 14.9 % (11.5-14.5); WBC 9.7 10x3/uL (4.8-10.8)
--- NOTE | 2019-12-02 14:15 | NUR ---
Nutrition follow-up: Pt receiving a regular diet PO intake 75-100% of meals Labs reviewed Wt: 145# +BM PO intake good at this time RDN following.
--- NOTE | 2019-12-02 15:44 | MORECARE ---
CASE MANAGEMENT DISCHARGE SUMMARY PATIENT: QUE SPENCE UNIT: [id number] ADM DATE: 11/22/19 AGE: 63 : 57 SEX: M ROOM/BED: D.2202 AUTHOR: DAVID ROCHA PHYSICIAN: REFERRING PHYSICIAN: LAYLA HENDERSON DO DATE OF SERVICE: 12/02/19 Discharge Plan Patient Name: QUE SPENCE Facility: [facility]:[place] : 1955 Planned Disposition: Home Anticipated Discharge Date: Discharge Date: Expected LOS: Initial Reviewer: [email or web address] Initial Review Date: 11/22/2019 Generated: 12/02/19 4:44 pm Comments DCP- Discharge Planning Updated by [email or web address]: Rochelle eMtz on 12/02/19 2:[address] Patient will be transferred to [facility], Dr Cool is the accepting doctor DCP- Discharge Planning Updated by [email or web address]: Elda Douglas on 12/01/19 3:[address] Patient Name: QUE SPENCE Admission Status: ER Accout number: [id number] Admission Date: 11-22-2019 : 1955 Admission Diagnosis:HEMOPTYSIS Attending: LAYLA HENDERSON Current LOS: 9 Anticipated DC Date: Planned Disposition: Home Primary Insurance: UNINSURED DISCOUNT PLAN Discharge Planning Comments: CM SPOKE WITH [facility] AT [phone] ABOUT NEED FOR TRANSFER FOR HIGH LEVEL OF CARE. PATIENT WILL NEED FACILITY WITH THORACIC SURGEON WITH TB PATIENT. DR. HEARN PHONE NUMBER GIVEN TO THEM FOR DOC TO DOC AND UNIT PHONE NUMBER GIVEN FOR NURSE. [facility] HAS NOT AGREED TO ACCEPT YET, I HAVE STARTED THE PROCESS AND WE ARE WAITING CALL BACK FROM THEIR NURSE. Coke Loader: Elda Douglas DCP- Discharge Planning Updated by [email or web address]: Rochelle Metz on 11/30/19 11:[address] Patient Name: QUE SPNECE Admission Status: ER Accout number: [id number] Admission Date: 11-22-2019 : 1955 Admission Diagnosis:HEMOPTYSIS Attending: LAYLA HENDERSON Current LOS: 8 Anticipated DC Date: Planned Disposition: Home Primary Insurance: UNINSURED DISCOUNT PLAN Discharge Planning Comments: CM met with patient to complete initial dc planning assessment. CM educated patient on the CM role and verbal consent given by patient to complete assessment. Patient lives at home in [place] where he is independent with his care. At discharge patient plans to return home and feels this is a safe discharge. CM discussed availability of home health, rehab services, and medical equipment. He has a cane at home. He stated that his PCP is in [place], He has [place] insurance and stated that he gets his medications filled. [facility] the pharmacy [facility] [place] to have it filled and then his brother will mail it to him. We talked about switching to [place] Insurance and he said that when he gets a bill he mails it to [facility] in [place]. He plans on taking a taxi home. Patient denied known discharge needs at this time. CM will continue to follow and will assist as needed with dc plans/needs. Coke Loader: Rochelle Metz DCPIA - Discharge Planning Initial Assessment Updated by [id number]: Rochelle Metz on 11/30/19 12:09 pm * Is the patient Alert and Oriented? Yes * How many steps to enter\exit or inside your home? * PCP [place] * Pharmacy [facility] IN [place] THEY CALL THE PHARMACY IN [place] AND THEN THE BROTHER MAILS THEM TO HIM * Preadmission Environment Home Alone * ADLs Independent * Equipment Cane * List name and contact numbers for known caregivers / representatives who currently or will assist patient after discharge: KAVEH SPENCE [phone] * Verbal permission to speak to the caregivers and representatives has been obtained from the patient. N/A * Community resources currently utilized None * Additional services required to return to the preadmission environment? No * Can the patient safely return to the preadmission environment? Yes * Has this patient been hospitalized within the prior 30 days at any hospital? Yes Last DP export: 12/01/19 3:38 pm Patient Name: QUE SPENCE Page 10887 at 1544 All edits/amendments must be made on the electronic document DICTATION DATE: 12/02/19 1544 BOILER ATTENDANT: PHU 12/02/19 1544 RPT#: [id number] DC DATE: STATUS: ADM IN [facility] [address] [facility], [facility] END OF REPORT
--- NOTE | 2019-12-02 20:00 | NUR ---
PT SITTING UP IN BED WITHOUT DISTRESS, AOX4. RECIEVING SECOND UNIT OF PRBC, VSS. DENIES NEEDS OR PAIN AT THIS TIME. CL IN REACH, WILL CTM
--- NOTE | 2019-12-02 22:00 | NUR ---
SECOND UNIT OF PRBC COMPLETE, VSS
[2019-12-03] VITALS: BP 123/66
--- NOTE | 2019-12-03 02:15 | NUR ---
TRANSFER CENTER CALLED STATING HE HAD A BED, F821. GAVE THIS NURSE NUMBER TO CALL REPORT. SPOKE WITH PT ABOUT GOING TO [facility], PT AGREED. DISCHARGE PAPERWORK DONE AND PT SIGNED. CALLED REPORT TO LIZZETTE ON F8 AND CALLED [facility] FOR TRANSPORT
--- NOTE | 2019-12-03 04:00 | NUR ---
[facility] ARRIVED AND TRANSPORTED PT AWAY BY STRETCHER, ALL BELONGINGS WERE IN BAG AND DISCHARGE PAPERWORK GIVEN TO EMS
--- NOTE | 2019-12-07 15:58 | MORECARE ---
CASE MANAGEMENT DISCHARGE SUMMARY PATIENT: QUE SPENCE UNIT: [id number] ADM DATE: 11/22/19 AGE: 63 : 57 SEX: M ROOM/BED: D.2202 AUTHOR: DAVID ROCHA PHYSICIAN: REFERRING PHYSICIAN: LAYLA HENDERSON DO DATE OF SERVICE: 12/07/19 Discharge Plan Patient Name: QUE SPENCE Facility: [facility]:[place] : 1955 Planned Disposition: Home Anticipated Discharge Date: Discharge Date: 12/03/2019 Expected LOS: Initial Reviewer: [email or web address] Initial Review Date: 11/22/2019 Generated: 12/07/19 4:57 pm Comments DCP- Discharge Planning Updated by [email or web address]: Rochelle Metz on 12/02/19 2:[address] Patient will be transferred to [facility], Dr Cool is the accepting doctor DCP- Discharge Planning Updated by [email or web address]: Elda Douglas on 12/01/19 3:[address] Patient Name: QUE SPENCE Admission Status: ER Accout number: [id number] Admission Date: 11-22-2019 : 1955 Admission Diagnosis:HEMOPTYSIS Attending: LAYLA HENDERSON Current LOS: 9 Anticipated DC Date: Planned Disposition: Home Primary Insurance: UNINSURED DISCOUNT PLAN Discharge Planning Comments: CM SPOKE WITH [facility] AT [phone] ABOUT NEED FOR TRANSFER FOR HIGH LEVEL OF CARE. PATIENT WILL NEED FACILITY WITH THORACIC SURGEON WITH TB PATIENT. DR. HEARN PHONE NUMBER GIVEN TO THEM FOR DOC TO DOC AND UNIT PHONE NUMBER GIVEN FOR NURSE. [facility] HAS NOT AGREED TO ACCEPT YET, I HAVE STARTED THE PROCESS AND WE ARE WAITING CALL BACK FROM THEIR NURSE. Sat Act Instructor: Elda Douglas DCP- Discharge Planning Updated by [email or web address]: Rochelle Metz on 11/30/19 11:[address] Patient Name: QUE SPENCE Admission Status: ER Accout number: [id number] Admission Date: 11-22-2019 : 1955 Admission Diagnosis:HEMOPTYSIS Attending: LAYLA HENDERSON Current LOS: 8 Anticipated DC Date: Planned Disposition: Home Primary Insurance: UNINSURED DISCOUNT PLAN Discharge Planning Comments: CM met with patient to complete initial dc planning assessment. CM educated patient on the CM role and verbal consent given by patient to complete assessment. Patient lives at home in [place] where he is independent with his care. At discharge patient plans to return home and feels this is a safe discharge. CM discussed availability of home health, rehab services, and medical equipment. He has a cane at home. He stated that his PCP is in [place], He has [place] insurance and stated that he gets his medications filled. [facility] the pharmacy [facility] [place] to have it filled and then his brother will mail it to him. We talked about switching to [place] Insurance and he said that when he gets a bill he mails it to [facility] in [place]. He plans on taking a taxi home. Patient denied known discharge needs at this time. CM will continue to follow and will assist as needed with dc plans/needs. Sat Act Instructor: Rochelle Metz DCPIA - Discharge Planning Initial Assessment Updated by [email or web address]: Rochelle Metz on 11/30/19 12:09 pm * Is the patient Alert and Oriented? Yes * How many steps to enter\exit or inside your home? * PCP [place] * Pharmacy [facility] IN [place] THEY [place] THE PHARMACY [place] AND THEN THE BROTHER MAILS THEM TO HIM * Preadmission Environment Home Alone * ADLs Independent * Equipment Cane * List name and contact numbers for known caregivers / representatives who currently or will assist patient after discharge: KAVEH SPENCE [phone] * Verbal permission to speak to the caregivers and representatives has been obtained from the patient. N/A * Community resources currently utilized None * Additional services required to return to the preadmission environment? No * Can the patient safely return to the preadmission environment? Yes * Has this patient been hospitalized within the prior 30 days at any hospital? Yes Last DP export: 12/02/19 2:44 pm Patient Name: QUE SPENCE Page 63233 at 1558 All edits/amendments must be made on the electronic document DICTATION DATE: 12/07/19 1557 DIAMOND MOUNTER: PHU 12/07/19 1557 RPT#: [id number] DC DATE:12/03/19 STATUS: DIS IN [facility] [address] [place] [address] END OF REPORT
== END 2019-12-03 04:00 | disposition short-term general hospital (02) | DRG 981 ==
LOC: D.ER 06:51 → D.MS 16:48 → D.EDHOLD 16:48 → D.MS 18:13
PROVIDERS: Emergency Medicine; Family Medicine; Internal Medicine Hematology & Oncology; Internal Medicine Pulmonary Disease; Radiology Diagnostic Radiology; Specialist; ADMIT Family Medicine; ATTEND Family Medicine
PROC: 03LY3DZ Occlusion of Upper Artery with Intraluminal Device, Percutaneous Approach (ICD-10-PCS; 2019-11-23)
PROC: 0B9G8ZX Drainage of Left Upper Lung Lobe, Via Natural or Artificial Opening Endoscopic, Diagnostic (ICD-10-PCS; principal; 2019-11-23 10:00)
PROC: B30TZZZ Plain Radiography of Left Pulmonary Artery (ICD-10-PCS; 2019-11-30)
DX: R04.2 Hemoptysis (principal); J18.9 Pneumonia, unspecified organism; A15.9 Respiratory tuberculosis unspecified; E87.1 Hypo-osmolality and hyponatremia; E78.5 Hyperlipidemia, unspecified; E87.6 Hypokalemia; Z87.891 Personal history of nicotine dependence; R91.1 Solitary pulmonary nodule; G89.29 Other chronic pain; D50.0 Iron deficiency anemia secondary to blood loss (chronic); R05 Cough; F17.200 Nicotine dependence, unspecified, uncomplicated

== ENCOUNTER 2019-12-18 07:20 | Inpatient (IN) | payer SELFPAY ==
[~2019-12-18] VITALS: Ht 188 cm; Wt 68.2 kg
[2019-12-18 07:53] LABS: BASOPHILS 1.1 % (0-2); EOSINOPHILS 4.6 % (0-7); HEMATOCRIT 33.2 % (42.0-54.0); HEMOGLOBIN 10.8 g/dL (13.5-17.5); IMMATURE GRANULOCYTES 0.1 % (0-5); LYMPHOCYTES 33.3 % (15-50); MCH 29.6 pg (26.0-34.0); MCHC 32.5 g/dL (31.0-37.0); MONOCYTES 6.8 % (2-11); NEUTROPHILS 54.1 % (40-80); PLATELET COUNT 380 10x3/uL (130-400); RBC 3.65 10x6/uL (4.20-6.10); RDW 14.5 % (11.5-14.5)
[2019-12-18 08:00] LABS: APTT 32.6 SECONDS (22.8-39.4); INR 1.34 (0.85-1.17); PROTIME 16.5 SECONDS (11.6-15.0)
[2019-12-18 08:02] LABS: CALC OSMOLALITY 275 mosm/kg (275-300); CARBON DIOXIDE 26.3 mmol/L (21.0-32.0); CHLORIDE - SERUM 104 mmol/L (98-107); CREATININE - SERUM 0.9 mg/dL (0.6-1.3); GLUCOSE 97 mg/dL (74-106); POTASSIUM - SERUM 3.2 mmol/L (3.5-5.1); SODIUM 139 mmol/L (136-145); UREA NITROGEN 6 mg/dL (7-18); eGFR NON AFRICAN AMERICAN > 90 mL/min (90-120)
[2019-12-18 08:05] LABS: ALBUMIN 2.5 g/dL (3.4-5.0); ALKALINE PHOSPHATASE 150 U/L (30-120); ALT (SGPT) 19 U/L (10-68); BILIRUBIN - TOTAL 0.34 mg/dL (0.2-1.3); PROTEIN - SERUM 9.2 g/dL (6.4-8.2)
[2019-12-18 08:32] LABS: CKMB 0.5 U/L (0.0-3.6); CREATINE KINASE 57 UL (21-232)
[2019-12-18 08:35] LABS: TROPONIN-I < 0.017 ng/mL (0.000-0.060)
[2019-12-18 09:30] VITALS: BP 112/76
--- NOTE | 2019-12-18 10:33 | NUR ---
CALLED REPORT TO [facility] AT THIS TIME
[2019-12-18 12:55] VITALS: BP 122/77; Ht 188 cm; Wt 68.2 kg
--- NOTE | 2019-12-18 13:16 | NUR ---
I have reviewed this patient and I concur with the Shift Assessment completed by the Licensed Practical Nurse today this shift.
--- NOTE | 2019-12-18 13:32 | NUR ---
REHAB PRESCREENING Rehab referral received and chart reviewed. This patient is uninsured and does not have a rehab source of payment. We are unable to accept this pt. Thank you for this referral! Nirmala Bolivar, MANAGER BALANCE Rehab PD
--- NOTE | 2019-12-18 15:00 | NUR ---
PATIENT SITTING UP IN BED, STATED PAIN IS AT AN 8 AND USUALLY HAS CONSTANT PAIN IN HIS BACK. IV TO RT HAND WITH MVI RUNNING AT 125. NO S/SX OF DISTRESS, NO OTHER NEEDS VOICED, CONTINUE WITH PLAN OF CARE
[2019-12-18 16:20] VITALS: BP 107/70
--- NOTE | 2019-12-18 19:00 | NUR ---
BEDSIDE REPORT RECEIVED AND CARE OF PT ASSUMED. PT LYING IN SUPINE POSITION WATCHING TV. IV TO RIGHT HAND PATENT WITH MVI INFUSING AT 125 ML/HR. WILL MONITOR FOR NEEDS.
[2019-12-18 20:00] VITALS: BP 108/72
--- NOTE | 2019-12-18 20:20 | NUR ---
HS MEDICATIONS GIVEN TO INCLUDE MORPHINE 4 MG IVP PER PT REQUEST FOR PAIN IN CHEST AND BACK. WILL MONITOR FOR EFFECTIVENESS.
--- NOTE | 2019-12-18 20:35 | NUR ---
ASSISTED PT IN APPLYING LOTION TO BACK FOR ITCHING.
[2019-12-19] VITALS: BP 96/69
[2019-12-19 04:00] VITALS: BP 117/67
[2019-12-19 06:12] LABS: BASOPHILS 0.7 % (0-2); EOSINOPHILS 4.8 % (0-7); HEMATOCRIT 29.2 % (42.0-54.0); HEMOGLOBIN 9.4 g/dL (13.5-17.5); IMMATURE GRANULOCYTES 0.2 % (0-5); LYMPHOCYTES 26.6 % (15-50); MCH 29.2 pg (26.0-34.0); MCHC 32.2 g/dL (31.0-37.0); MCV 90.7 fL (80.0-100.0); MEAN PLATELET VOLUME 9.5 fL (7.4-10.4); MONOCYTES 8.1 % (2-11); NEUTROPHILS 59.6 % (40-80); RBC 3.22 10x6/uL (4.20-6.10); RDW 14.6 % (11.5-14.5); WBC 6.1 10x3/uL (4.8-10.8)
[2019-12-19 06:15] LABS: PLATELET COUNT 295 10x3/uL (130-400)
[2019-12-19 07:13] LABS: ALBUMIN 2.1 g/dL (3.4-5.0); ALKALINE PHOSPHATASE 131 U/L (30-120); ALT (SGPT) 17 U/L (10-68); BILIRUBIN - TOTAL 0.47 mg/dL (0.2-1.3); CALCIUM 7.9 mg/dL (8.5-10.1); CARBON DIOXIDE 22.4 mmol/L (21.0-32.0); CHLORIDE - SERUM 105 mmol/L (98-107); CREATININE - SERUM 0.7 mg/dL (0.6-1.3); GLUCOSE 85 mg/dL (74-106); PROTEIN - SERUM 7.3 g/dL (6.4-8.2); SODIUM 137 mmol/L (136-145); eGFR NON AFRICAN AMERICAN > 90 mL/min (90-120)
[2019-12-19 07:15] LABS: CALC OSMOLALITY 269 mosm/kg (275-300); POTASSIUM - SERUM 3.9 mmol/L (3.5-5.1); UREA NITROGEN 3 mg/dL (7-18)
[2019-12-19 08:10] VITALS: BP 147/83
--- NOTE | 2019-12-19 09:08 | NUR ---
PATIENT UP MOVING AROUND IN ROOM, PATIENT STATES THAT MORPHINE MAKES HIM "ITCH" WILL SPEAK TO PROVIDER DURING ROUNDS ABOUT ANOTHER PAIN MEDICATION. PT STATED HE IS ALRIGHT FOR NOW. NO OTHER NEEDS VOICED, CALL LIGHT IN REACH BED IN LOWEST POSITION, CONTINUE WITH PLAN OF CARE
--- NOTE | 2019-12-19 10:41 | NUR ---
I have reviewed this patient and I concur with the Shift Assessment completed by the Licensed Practical Nurse today this shift.
--- NOTE | 2019-12-19 11:57 | NUR ---
SPOKE TO TIRE AND LUBE TECHNICIAN IN REGARDS TO PT PAIN MDEICATION MAKING HIM ITCH. NO OTHER NEEDS AT THIS TIME. CONTINUE WITH PLAN OF CARE
[2019-12-19 12:29] VITALS: BP 128/74
[2019-12-19] MEDS ORDERED: VFEND200 MG PO ×2 (15:02→16:05)
[2019-12-19] MEDS ORDERED: MUCINEX600 MG PO (15:02)
[2019-12-19] MEDS ORDERED: PROTONIX40 MG PO (15:02)
[2019-12-19] MEDS ORDERED: TESSALON PERLE100 MG PO (15:02)
[2019-12-19] MEDS ORDERED: NICODERM CQ1 EAC1 TRANSDERM (15:02)
--- NOTE | 2019-12-19 16:37 | NUR ---
SPOKE TO CASE MANAGEMENT IN REGARDS TO ABX ORDERED FOR PATIENT, PER Edson WILEY RN, PT INS WILL NOT COVER MEDICATION AND HOSPITAL UNABLE TO AUTHORIZE SUCH AN AMOUNT FOR MEDICATIONS. CALLED AND SPOKE TO DR LOAIZA IN REGARDS TO CHANGING POSSIBLE ABX. TO [facility] IF INS WILL COVER THAT. SPOKE WITH CORY COREY AND WITHOUT INS MEDICATION IS STILL EXPENSIVE. WILL SEE IF DR LOAIZA CAN WRITE A SCRIPT AND POSSIBLY PT CAN TAKE TO GET FILLED IN [place]. NO OTHER NEEDS AT THIS TIME FROM PT. CONTINUE WITH PLAN OF CARE
--- NOTE | 2019-12-19 16:40 | MORECARE ---
CASE MANAGEMENT DISCHARGE SUMMARY PATIENT: QUE SPENCE AYLA UNIT: [id number] ADM DATE: 12/18/19 AGE: 63 : 57 SEX: M ROOM/BED: D.2219 AUTHOR: DAVID ROCHA PHYSICIAN: REFERRING PHYSICIAN: XENIA SMITH MD DATE OF SERVICE: 12/19/19 Discharge Plan Patient Name: QUE SPENCE [facility] [facility] 1955 Planned Disposition: Anticipated Discharge Date: Discharge Date: Expected LOS: Initial Reviewer: [email or web address] Initial Review Date: 12/18/2019 Generated: 12/19/19 5:39 pm Patient Name: QUE SPENCE Page 09965 at 1640 All edits/amendments must be made on the electronic document DICTATION DATE: 12/19/19 1640 RECEIVING DOCK CHECKER: PHU 12/19/19 [facility] RPT#: [id number] DC DATE: STATUS: ADM IN [facility] [address] [place] [address] END OF REPORT
--- NOTE | 2019-12-19 16:47 | MORECARE ---
CASE MANAGEMENT DISCHARGE SUMMARY PATIENT: QUE SPENCE AYLA UNIT: [id number] ADM DATE: 12/18/19 AGE: 63 : 57 SEX: M ROOM/BED: D.2219 AUTHOR: DAVID ROCHA PHYSICIAN: REFERRING PHYSICIAN: XENIA SMITH MD DATE OF SERVICE: 12/19/19 Discharge Plan Patient Name: QUE SPENCE [facility] : 1955 Planned Disposition: Anticipated Discharge Date: Discharge Date: Expected LOS: Initial Reviewer: [id number] Initial Review Date: 12/18/2019 Generated: 12/19/19 5:47 pm DCPIA - Discharge Planning Initial Assessment Updated by [email or web address]: Maday Molina on 12/19/19 4:41 pm * Is the patient Alert and Oriented? Yes * How many steps to enter\exit or inside your home? 0/0 * PCP in [facility] * Pharmacy [facility]. PT THEN CALLS THE [facility] IN [place] TO FILL RX. HIS BROTHER PICKS UP HIS RX'S AND MAILS THEM * Preadmission Environment Home Alone * ADLs Independent * Equipment Cane * List name and contact numbers for known caregivers / representatives who currently or will assist patient after discharge: KAVEH SPENCE [phone] * Verbal permission to speak to the caregivers and representatives has been obtained from the patient. Yes * Community resources currently utilized None * Please name any agencies selected above. N/A * Additional services required to return to the preadmission environment? No * Can the patient safely return to the preadmission environment? Yes * Has this patient been hospitalized within the prior 30 days at any hospital? Yes Last DP export: 12/19/19 3:40 p Patient Name: QUE SPENCE Page 50092 at 1647 All edits/amendments must be made on the electronic document DICTATION DATE: 12/19/191646 BRAND DIRECTOR: PHU 12/19/191646 RPT#: [id number] DC DATE: STATUS: ADM IN [facility] [address] [place] [address] END OF REPORT
[2019-12-19 16:49] VITALS: BP 139/70
--- NOTE | 2019-12-19 17:15 | MORECARE ---
CASE MANAGEMENT DISCHARGE SUMMARY PATIENT: QUE SPENCE UNIT: [id number] ADM DATE: 12/18/19 AGE: 63 : 57 SEX: M ROOM/BED: D.2219 AUTHOR: DAVID ROCHA PHYSICIAN: REFERRING PHYSICIAN: XENIA SMITH MD DATE OF SERVICE: 12/19/19 Discharge Plan Patient Name: QUE SPENCE Facility: [facility]:[place] : 1955 Planned Disposition: Anticipated Discharge Date: Discharge Date: Expected LOS: Initial Reviewer: [email or web address] Initial Review Date: 12/18/2019 Generated: 12/19/19 6:15 pm Comments DCP- Discharge Planning Updated by [email or web address]: Maday Molina on 12/19/19 4:[address] Patient Name: QUE SPENCE Admission Status: ER Accout number: [id number] Admission Date: 12-18-2019 : 1955 Admission Diagnosis: Attending: XENIA SMITH Current LOS: 1 Anticipated DC Date: Planned Disposition: Primary Insurance: UNINSURED DISCOUNT PLAN Discharge Planning Comments: CM met with patient to complete initial DC planning assessment. CM educated pt on CM role and verbal consent given by pt to complete assessment. Pty states he is living in a family home in [place], but also lives in [facility] where his brother also lives. Pt states his medical bills are sent to [place], and the insurance pays for them. States he received a medication from [facility] that insurance will not pay for. States the medication costs over a thousand dollars and he can not afford this. Pt coveys that he wishes the Dr will give him another medication that is affordable. CM spoke with the RN about the that barrier to DC. Nursing states she will speak with Dr Dennison about the barrier. Pt states his family friend will pick him up at discharge. CM spoke with patient about home health , DME, and IP rehab services. Pt denies known discharge needs at this time. CM will continue to assist as needed with DC plans/needs Business Systems Consultant: Maday Molina MSN,RN,CM DCPIA - Discharge Planning Initial Assessment Updated by [email or web address]: Maday Molina on 12/19/19 4:41 pm * Is the patient Alert and Oriented? Yes * How many steps to enter\exit or inside your home? 0/0 * PCP in [facility] * Pharmacy [facility]. PT THEN CALLS THE [facility] IN [place] TO FILL RX. HIS BROTHER PICKS UP HIS RX'S AND MAILS THEM * Preadmission Environment Home Alone * ADLs Independent * Equipment Cane * List name and contact numbers for known caregivers / representatives who currently or will assist patient after discharge: KAVEH SPENCE [phone] * Verbal permission to speak to the caregivers and representatives has been obtained from the patient. Yes * Community resources currently utilized None * Please name any agencies selected above. N/A * Additional services required to return to the preadmission environment? No * Can the patient safely return to the preadmission environment? Yes * Has this patient been hospitalized within the prior 30 days at any hospital? Yes Last DP export: 12/19/19 3:47 p Patient Name: QUE SPENCE Page 35371 at 1715 All edits/amendments must be made on the electronic document DICTATION DATE: 12/19/191714 VELOCITY SHOOTER: PHU 12/19/191714 RPT#: [id number] DC DATE: STATUS: ADM IN [facility] [address] [place] [address] END OF REPORT
--- NOTE | 2019-12-20 09:14 | MORECARE ---
CASE MANAGEMENT DISCHARGE SUMMARY PATIENT: QUE SPENCE UNIT: [id number] ADM DATE: 12/18/19 AGE: 63 : 57 SEX: M ROOM/BED: D.2219 AUTHOR: DAVID ROCHA PHYSICIAN: REFERRING PHYSICIAN: XENIA SMITH MD DATE OF SERVICE: 12/20/19 Discharge Plan Patient Name: QUE SPENCE Facility: [facility]:[place] : 1955 Planned Disposition: Anticipated Discharge Date: Discharge Date: 12/19/2019 Expected LOS: Initial Reviewer: [email or web address] Initial Review Date: 12/18/2019 Generated: 12/20/19 10:13 am Comments DCP- Discharge Planning Updated by [email or web address]: Maday Molina on 12/19/19 4:[address] Patient Name: QUE SPENCE Admission Status: ER Accout number: [id number] Admission Date: 12-18-2019 : 1955 Admission Diagnosis: Attending: XENIA SMITH Current LOS: 1 Anticipated DC Date: Planned Disposition: Primary Insurance: UNINSURED DISCOUNT PLAN Discharge Planning Comments: CM met with patient to complete initial DC planning assessment. CM educated pt on CM role and verbal consent given by pt to complete assessment. Pty states he is living in a family home in [place], but also lives in [facility] where his brother also lives. Pt states his medical bills are sent to [place], and the insurance pays for them. States he received a medication from [facility] that insurance will not pay for. States the medication costs over a thousand dollars and he can not afford this. Pt coveys that he wishes the Dr will give him another medication that is affordable. CM spoke with the RN about the that barrier to DC. Nursing states she will speak with Dr Dennison about the barrier. Pt states his family friend will pick him up at discharge. CM spoke with patient about home health , DME, and IP rehab services. Pt denies known discharge needs at this time. CM will continue to assist as needed with DC plans/needs Programmer Analyst [employer] It: Maday Molina MSN,RN,CM DCPIA - Discharge Planning Initial Assessment Updated by [email or web address]: Maday Molina on 12/19/19 4:41 pm * Is the patient Alert and Oriented? Yes * How many steps to enter\exit or inside your home? 0/0 * PCP in [facility] * [place] [facility] [place] [facility] [place] PT THEN CALLS THE [facility] IN [place] TO FILL RX. HIS BROTHER PICKS UP HIS RX'S AND MAILS THEM * Preadmission Environment Home Alone * ADLs Independent * Equipment Cane * List name and contact numbers for known caregivers / representatives who currently or will assist patient after discharge: KAVEHJESSEE SPENCE [phone] * Verbal permission to speak to the caregivers and representatives has been obtained from the patient. Yes * Community resources currently utilized None * Please name any agencies selected above. N/A * Additional services required to return to the preadmission environment? No * Can the patient safely return to the preadmission environment? Yes * Has this patient been hospitalized within the prior 30 days at any hospital? Yes Last DP export: 12/19/19 4:16 p Patient Name: QUE SPENCE Page [id number] at 0914 All edits/amendments must be made on the electronic document DICTATION DATE: 12/20/19912 LEATHER SPLITTER: PUH 12/20/19912 RPT#: [id number] DC DATE:12/19/19 STATUS: DIS IN [facility] [address] [place] [address] END OF REPORT
--- NOTE | 2019-12-20 11:55 | MORECARE ---
CASE MANAGEMENT DISCHARGE SUMMARY PATIENT: QUE SPENCE UNIT: [id number] ADM DATE: 12/18/19 AGE: 63 : 57 SEX: M ROOM/BED: D.2219 AUTHOR: DAVID ROCHA PHYSICIAN: REFERRING PHYSICIAN: XENIA SMITH MD DATE OF SERVICE: 12/20/19 Discharge Plan Patient Name: QUE SPENCE Facility: [facility]:[place] : 1955 Planned Disposition: Anticipated Discharge Date: Discharge Date: 12/19/2019 Expected LOS: Initial Reviewer: [email or web address] Initial Review Date: 12/18/2019 Generated: 12/20/19 12:55 pm Comments DCP- Discharge Planning Updated by [email or web address]: Maday Molina on 12/19/19 4:[address] Patient Name: QUE SPENCE Admission Status: ER Accout number: [id number] Admission Date: 12-18-2019 : 1955 Admission Diagnosis: Attending: XENIA SMITH Current LOS: 1 Anticipated DC Date: Planned Disposition: Primary Insurance: UNINSURED DISCOUNT PLAN Discharge Planning Comments: CM met with patient to complete initial DC planning assessment. CM educated pt on CM role and verbal consent given by pt to complete assessment. Pty states he is living in a family home in [place], but also lives in [facility] where his brother also lives. Pt states his medical bills are sent to [place], and the insurance pays for them. States he received a medication from [facility] that insurance will not pay for. States the medication costs over a thousand dollars and he can not afford this. Pt coveys that he wishes the Dr will give him another medication that is affordable. CM spoke with the RN about the that barrier to DC. Nursing states she will speak with Dr Dennison about the barrier. Pt states his family friend will pick him up at discharge. CM spoke with patient about home health , DME, and IP rehab services. Pt denies known discharge needs at this time. CM will continue to assist as needed with DC plans/needs Hospital Account Manager: Maday Molina MSN,RN,CM DCPIA - Discharge Planning Initial Assessment Updated by [email or web address]: Maday Molina on 12/19/19 4:41 pm * Is the patient Alert and Oriented? Yes * How many steps to enter\exit or inside your home? 0/0 * PCP in [facility] * Pharm[facility] [place]. PT THEN CALLS THE [facility] IN [place] TO FILL RX. HIS BROTHER PICKS UP HIS RX'S AND MAILS THEM * Preadmission Environment Home Alone * ADLs Independent * Equipment Cane * List name and contact numbers for known caregivers / representatives who currently or will assist patient after discharge: KAVEHJESSEE SPENCE [phone] * Verbal permission to speak to the caregivers and representatives has been obtained from the patient. Yes * Community resources currently utilized None * Please name any agencies selected above. N/A * Additional services required to return to the preadmission environment? No * Can the patient safely return to the preadmission environment? Yes * Has this patient been hospitalized within the prior 30 days at any hospital? Yes Last DP export: 12/20/19 8:14 a Patient Name: QUE SPENCE Page [id number] at 1155 All edits/amendments must be made on the electronic document DICTATION DATE: 12/20/19 1155 [employer]: PHU 12/20/19 1155 RPT#: [id number] DC DATE:12/19/19 STATUS: DIS IN [facility] [address] [place] [address] END OF REPORT
== END 2019-12-19 19:00 | disposition home or self-care (01) | DRG 190 ==
LOC: D.ER 07:20 → D.MS 09:20
PROVIDERS: Family Medicine; ADMIT Family Medicine; ATTEND Family Medicine
DX: J47.0 Bronchiectasis with acute lower respiratory infection (principal); J12.89 Other viral pneumonia; R04.2 Hemoptysis; J90 Pleural effusion, not elsewhere classified; F17.203 Nicotine dependence unspecified, with withdrawal; E44.0 Moderate protein-calorie malnutrition; Z68.1 Body mass index [BMI] 19.9 or less, adult; R59.1 Generalized enlarged lymph nodes; E87.6 Hypokalemia; D64.9 Anemia, unspecified; I25.10 Atherosclerotic heart disease of native coronary artery without angina pectoris; F10.10 Alcohol abuse, uncomplicated; R53.81 Other malaise

== ENCOUNTER → 2019-12-29 07:09 | Outpatient (CLI) | payer SELFPAY ==
[2019-12-18 12:55] VITALS: BMI 19.3
[~2019-12-29 07:09] MED LIST changes: +MUCINEX600 MG PO; +NICODERM CQ1 EAC1 TRANSDERM; +PROTONIX40 MG PO; +VFEND200 MG PO
== END | disposition home or self-care (01) ==
LOC: D.RAD 07:09
PROVIDERS: ATTEND Internal Medicine Pulmonary Disease
DX: J18.9 Pneumonia, unspecified organism (principal)

== ENCOUNTER 2020-01-05 07:14 | Emergency (ER) | payer SELFPAY ==
[~2020-01-05] VITALS: Ht 188 cm; Wt 68.2 kg
[2020-01-05 07:23] VITALS: Ht 188 cm; Wt 68.2 kg
[2020-01-05 08:26] VITALS: BP 110/68
== END 2020-01-05 08:27 | disposition home or self-care (01) ==
LOC: D.ER 07:14
DX: R05 Cough (principal)

== ENCOUNTER 2020-01-19 07:14 | Emergency (ER) | payer SELFPAY ==
[~2020-01-19] VITALS: Ht 188 cm; Wt 68.2 kg
[2020-01-19 07:26] VITALS: BP 107/57; Ht 188 cm; Wt 68.2 kg
[2020-01-19 09:23] LABS: BASOPHILS 0.6 % (0-2); HEMATOCRIT 36.1 % (42.0-54.0); IMMATURE GRANULOCYTES 0.3 % (0-5); LYMPHOCYTES 24.3 % (15-50); MCH 31.1 pg (26.0-34.0); MCHC 33.2 g/dL (31.0-37.0); MCV 93.5 fL (80.0-100.0); MEAN PLATELET VOLUME 9.8 fL (7.4-10.4); NEUTROPHILS 56.8 % (40-80); RBC 3.86 10x6/uL (4.20-6.10); RDW 17.3 % (11.5-14.5); WBC 6.5 10x3/uL (4.8-10.8)
[2020-01-19 09:33] LABS: PLATELET COUNT 178 10x3/uL (130-400)
[2020-01-19 09:34] LABS: CALC OSMOLALITY 266 mosm/kg (275-300); CALCIUM 8.6 mg/dL (8.5-10.1); CARBON DIOXIDE 25.2 mmol/L (21.0-32.0); CHLORIDE - SERUM 100 mmol/L (98-107); CREATININE - SERUM 0.8 mg/dL (0.6-1.3); GLUCOSE 93 mg/dL (74-106); POTASSIUM - SERUM 3.1 mmol/L (3.5-5.1); SODIUM 135 mmol/L (136-145); UREA NITROGEN 3 mg/dL (7-18); eGFR NON AFRICAN AMERICAN > 90 mL/min (90-120)
[2020-01-19 09:40] LABS: ALBUMIN 2.7 g/dL (3.4-5.0); ALKALINE PHOSPHATASE 213 U/L (30-120); ALT (SGPT) 14 U/L (10-68); BILIRUBIN - TOTAL 0.52 mg/dL (0.2-1.3); PROTEIN - SERUM 8.9 g/dL (6.4-8.2)
[2020-01-19] MEDS ORDERED: K-TAB10 MEQ PO (09:48)
== END 2020-01-19 10:07 | disposition home or self-care (01) ==
LOC: D.ER 07:14
PROVIDERS: Emergency Medicine
DX: S16.1XXA Strain of muscle, fascia and tendon at neck level, initial encounter (principal); E87.6 Hypokalemia; W19.XXXA Unspecified fall, initial encounter; Y93.9 Activity, unspecified; Y92.9 Unspecified place or not applicable; M54.2 Cervicalgia